=== PATIENT | female | born 1960 | race Caucasian/White ===

== ENCOUNTER → 2016-08-02 | Outpatient (CLI) | payer BC ==
[~2016-08-02] MED LIST: ASCA500 PO; ASPI81TA28 PO; CALCTAB5; CLX20 PO; FERR325T5 PO; FRS/40 PO; GLUCINJ SQ; LEVO125T7 PO; LEVO125T72 PO; LISI-729 PO; LPR25 PO; MISCCAP80 PO; MULT-506; POTA10CA28 PO; PRLSR20 PO; SIMV20TA2 PO; SPIR50TA2 PO; TIMO0.2527 OPB
[2016-08-02 12:13] LABS: ALT/SGPT 21 U/L (12-78); BLOOD UREA NITROGEN 32 mg/dl (7-18); BUN/CREATININE RATIO 26.3 (10-20); CALCIUM 9.1 mg/dl (8.5-10.1); CARBON DIOXIDE 25 mmol/L (21-32); CHLORIDE 102 mmol/L (98-107); CHOLESTEROL 136 mg/dl (0-200); GLUCOSE 157 mg/dl (70-99); POTASSIUM 4.6 mmol/L (3.5-5.1); SODIUM 136 mmol/L (136-145); TRIGLYCERIDES 76 mg/dl (0-150); VERY LOW DENSITY LIPOPROT CALC 15 mg/dl
[2016-08-02 12:24] LABS: ALKALINE PHOSPHATASE 87 U/L (45-117); AST/SGOT 12 U/L (15-37); CHOLESTEROL/HDL RATIO 2.1; HDL CHOLESTEROL 66 mg/dl; LDL CHOLESTEROL CALCULATED 55 mg/dl
[2016-08-02 12:39] LABS: RATIO 32.3 mcg/mg (0-30.0)
[2016-08-02 13:01] LABS: ESTIMATED AVERAGE GLUCOSE 240 mg/dl; HA1C FLAG Normal (Normal)
== END | disposition home or self-care (01) ==
LOC: C.LAB1850 09:40
PROVIDERS: ATTEND Nurse Practitioner Adult Health
DX: I10 Essential (primary) hypertension (principal); E03.9 Hypothyroidism, unspecified; E78.5 Hyperlipidemia, unspecified; E10.9 Type 1 diabetes mellitus without complications

== ENCOUNTER → 2016-10-18 | Outpatient (CLI) | payer BC ==
--- NOTE | 2016-10-18 09:48 | DIAGNOSTIC IMAGING REPORT ---
LEFT KNEE 4 OR MORE CLINICAL HISTORY: LEFT KNEE PAIN pain COMPARISON: None. DISCUSSION: Considerable degenerative narrowing medial joint compartment. Moderate degenerative change patellofemoral joint. Mild osteophytic reaction from the superior and inferior aspect of the patella. There is no evidence for soft tissue swelling. IMPRESSION: Significant degenerative change primarily of the medial and to a lesser extent patellofemoral joint compartments. Electronically signed by: Garrett Logan M.D. 10/18/2016 9:47 AM Dictated Date/Time: 10/18/2016 9:44 AM
== END | disposition home or self-care (01) ==
LOC: C.RDSM 13:55
PROVIDERS: ATTEND Family Medicine
DX: M25.562 Pain in left knee (principal); M17.12 Unilateral primary osteoarthritis, left knee

== ENCOUNTER 2017-05-02 23:11 | Emergency (ER) | payer OTHER, BC ==
[~2017-05-02] VITALS: Ht 165.1 cm; Wt 82.0 kg
[2017-05-02 23:16] VITALS: TEMP 36.9; Ht 165.1 cm; Wt 82.0 kg
--- NOTE | 2017-05-02 23:45 | EMERGENCY ROOM VISIT NOTE ---
History Report prepared by Lucy: Vincent Deleon Under the Supervision of: Dr. Lola Momin D.O. First contact with patient: 23:19 Chief Complaint: HYPOGLYCEMIA Stated Complaint: FELL-WC History of Present Illness The patient is a 56 year old female who presents to the Emergency Room with complaints of hypoglycemia that was recorded 1 hour ago. She has a past medical history of type 1 diabetes. 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 She was found on the floor by other staff members and does not remember what happened. She was found to be hypoglycemic with a blood sugar level of 48. She does not remember if she experienced a fall or not, but she is denying any pain or trauma at this time. After the incident, she ate some fudge and orange juice prior to arrival to the hospital. Earlier today at 1630, she did not take her blood sugar but gave herself insulin before eating dinner. She then had some hard candy as well. She notes that recently, she has been having episodes of hypoglycemia intermittently with her most recent one being yesterday. Her current blood sugar per nursing staff is 98. She denies any headache, neck pain, chest pain, shortness of breath, abdominal pain, fatigue or loss of her bowel or bladder. She states she used to have an insulin pump that was removed four years ago because of hyperglycemic episodes and the fear that it will happen again. Source of History: patient Onset: 1 hour ago Position: other (Hypoglycemia) Symptom Intensity: BSG 48 Quality: other (Hypoglycemia) Timing: other (Improving) Associated Symptoms: + LOC, No headache, No neck pain, No chest pain, No SOB , No abdominal pain, No urinary symptoms Note: She denies any abnormal symptoms at this time. Review of Systems See HPI for pertinent positives & negatives. A total of 10 systems reviewed and were otherwise negative. Past Medical & Surgical Medical Problems: (1) Acute renal failure (2) DKA, type 1 (3) DM (diabetes mellitus) type 1, uncontrolled, with ketoacidosis (4) Hyperkalemia (5) Hyperlipidemia (6) Hypertension (7) Hypothyroid (8) Vomiting Family History FHx: diabetes FHx: gallbladder disease FHx: heart disease FHx: lung disease Social History Smoking Status: Never Smoker Smokeless Tobacco Use: No Alcohol Use: none Drug Use: none Marital Status: in relationship Housing Status: lives with friends Occupation Status: employed Current/Historical Medications Scheduled Ascorbic Acid (Vitamin C *), 1,000 MG PO BID Aspirin (Aspirin Ec), 81 MG PO DAILY Calcium (Caltrate), 1 TAB DAILY Furosemide (Lasix), 40 MG PO DAILY Glucagon Hcl (Rdna) (Glucagen Hypokit), 1 INJ SQ UD Insulin Detemir (Levemir Flextouch), 1 DOSE SQ DIRECTED Insulin Human Lispro (Insulin Humalog Pump ), 1 EA N/A UD Levothyroxine (Levothroid), 0.125 MG PO 6XWK Levothyroxine Sodium (Synthroid), 250 MCG PO WK Metoprolol Tartrate (Lopressor), 12.5 MG PO BID Multivitamin (Multivitamin), 1 TAB DAILY Omeprazole (Prilosec), 20 MG PO DAILY Potassium Chloride (Micro-K Ext Rel), 10 MEQ PO DAILY Probiotic Product (Probiotic), 1 CAP PO DAILY Simvastatin (Zocor), 20 MG PO HS Spironolactone (Aldactone), 50 MG PO DAILY Scheduled PRN Lisinopril (Zestril), 5 MG PO DAILY PRN for m Allergies Coded Allergies: Cephalosporins (Verified Allergy, Mild, 05/03/17) Sulfa Drugs (Verified Allergy, Unknown, 05/03/17) Physical Exam Vital Signs Date Time Temp Pulse Resp B/P (MAP) Pulse Ox O2 Delivery O2 Flow Rate FiO2 05/03/17 00:38 61 18 128/57 99 05/02/17 23:16 36.9 69 20 151/64 100 Room Air Physical Exam HEENT: Head - normocephalic and atraumatic Pupils are equal, round, and reactive to light. Extraocular eye muscles are intact, and sclera are anicteric. Nose - moist nasal mucosa without discharge. Mouth - moist buccal mucosa. Oropharynx is nonerythematous and there is no tonsillar exudate or edema noted. Neck: Supple; no JVD, nuchal rigidity, cervical lymphadenopathy. Heart: Regular rate and rhythm. There is a normal S1 and S2 with no murmurs, clicks, or gallops appreciated. Lungs: Clear to auscultation bilaterally with no wheezes, rales, or rhonchi. Abdomen: Soft, completely nontender, nondistended, with good bowel sounds. There are no palpable pulsatile masses or hepatosplenomegaly. There is no guarding, rigidity, or rebound noted. Extremities: No evidence of cyanosis, clubbing, or edema. There are easily palpable peripheral pulses. Skin: Cold and slightly mottled on her abdomen. Medical Decision & Procedures Laboratory Results Test 05/03/17 00:19 Bedside Glucose 134 mg/dl (70-90) Laboratory results per my review. ED Course 2325: Past medical records reviewed. The patient was evaluated in room B12B. A complete history and physical exam was performed. A BSG was rechecked. 0014: I rechecked the patient at this time. She is feeling well. She gave a urine sample and noted that it was mildly red. However, she admits to eating beats recently which can make your urine red. A BSG was obtained. It's stable 0033: Upon reevaluation, the patient is resting. I discussed findings and results with her. She verbalized agreement of the treatment plan. She was discharged home. Medical Decision The patient is a 56 year old female who presents to the ED with hypoglycemia. Differential diagnosis includes poorly controlled diabetes, hypoglycemia, trauma , and hyperglycemia. Laboratory Results: Second BSG of 134, urine dip showed trace protein and trace nitrites. This is a 56-year-old type I diabetic who presents to the emergency department after an episode of unresponsiveness and hypoglycemia. The patient was at work when this occurred. She describes having another episode of hypoglycemia 2 days ago. The patient's blood sugar rebounded nicely and remained stable while here in the emergency department. I've encouraged the patient to watch her blood sugar closely over the next couple of days and take her sugar with each insulin administration and before she drives. Medication Reconcilliation Current Medication List: was personally reviewed by me Blood Pressure Screening Patient's blood pressure: Elevated blood pressure Blood pressure disposition: Elevated BP felt to be situational Impression Primary Impression: Diabetic hypoglycemia Scribe Attestation The scribe's documentation has been prepared under my direction and personally reviewed by me in its entirety. I confirm that the note above accurately reflects all work, treatment, procedures, and medical decision making performed by me. Departure Information Dispostion Home / Self-Care Referrals Faisal Bravo M.D. (PCP) Forms HOME CARE DOCUMENTATION FORM, IMPORTANT VISIT INFORMATION, WORK / SCHOOL INSTRUCTIONS Patient Instructions ED Diabetes Hypoglycemia Insulin React, My [facility] Additional Instructions rest Watch your blood sugar closely. Take your BSG before each insulin dose and before driving a car
[2017-05-03] MEDS ORDERED: LVMIPEN SQ (00:05)
[2017-05-03] MEDS ORDERED: INSPMPHMLG (00:06)
[2017-05-03 00:38] VITALS: BP 128/57; PULSE 61; O2SAT 99
== END 2017-05-03 00:39 | disposition home or self-care (01) ==
LOC: C.EDB 23:12
DX: E10.649 Type 1 diabetes mellitus with hypoglycemia without coma (principal); R55 Syncope and collapse; E78.5 Hyperlipidemia, unspecified; I10 Essential (primary) hypertension; E03.9 Hypothyroidism, unspecified; Z79.82 Long term (current) use of aspirin; Z79.899 Other long term (current) drug therapy; Z87.448 Personal history of other diseases of urinary system

== ENCOUNTER 2017-07-29 21:36 | Emergency (ER) | payer BC, OTHER ==
[~2017-07-29] VITALS: Ht 157.5 cm; Wt 81.3 kg
[~2017-07-29 21:36] MED LIST changes: -CLX20 PO; -FERR325T5 PO; +INSPMPHMLG; +LVMIPEN SQ; -TIMO0.2527 OPB
[2017-07-29 21:44] VITALS: Ht 157.5 cm; Wt 81.3 kg
[2017-07-29] MEDS ORDERED: BENZONATATE 100MG CAP PO ONE (22:00)
--- NOTE | 2017-07-29 22:31 | DIAGNOSTIC IMAGING REPORT ---
CHEST 2 VIEWS ROUTINE CLINICAL HISTORY: cough eval for pna COMPARISON STUDY: 04/09/2013 FINDINGS: Small parenchymal infiltrate medial aspect left lower lobe. Lungs otherwise appear clear. Diaphragms smooth. IMPRESSION: Small parenchymal infiltrate medial aspect left lower lobe. The above report was generated using voice recognition software. It may contain grammatical, syntax or spelling errors. Electronically signed by: Garrett Logan M.D. 07/29/2017 10:30 PM Dictated Date/Time: 07/29/2017 10:29 PM
[2017-07-29 22:42] LABS: INFLUENZA B ANTIGEN Neg for Influ B (NEG)
[2017-07-29] MEDS ORDERED: LEVO-366 PO (22:56)
[2017-07-29] MEDS ORDERED: ASCO100061 PO (22:58)
[2017-07-29] MEDS ORDERED: LEVOFLOXACIN 250 MG TAB PO ONE (23:00)
[2017-07-29] MEDS ORDERED: LEVO125T5 PO ×2 (23:02→23:06)
[2017-07-29 23:04] VITALS: BP 154/67; PULSE 71; TEMP 36.6; O2SAT 98
[2017-07-29] MEDS ORDERED: LEVO100T7 PO (23:04)
[2017-07-30] MEDS ORDERED: FLUC150T PO (00:30)
--- NOTE | 2017-07-30 00:55 | EMERGENCY ROOM VISIT NOTE ---
History Report prepared by Lucy: Yusuf Trinidad Under the Supervision of: Dr. Kumar Pritchett M.D. First contact with patient: 21:49 Chief Complaint: FLU LIKE SX Stated Complaint: COUGH,ACHING-FLU LIKE History of Present Illness The patient is a 57 year old female diabetic who presents to the Emergency Room with complaints of a persistent illness that started a few days ago. She states that she is congested, with a sore throat and a cough that is sometimes productive. The patient says that she has generalized achiness, and some of her teeth hurt in the back. She adds that she has some sinus pressure. The patient denies any fevers, shortness of breath, chest pain, or vomiting. 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 Source of History: patient Onset: A few days ago Position: other (global) Quality: other (illness) Timing: other (persistent) Associated Symptoms: + sorethroat, + cough, No fevers, No chest pain, No SOB , No vomiting Note: Associated symptoms: Achiness, teeth hurt in back, sinus pressure. Congestion. Review of Systems See HPI for pertinent positives & negatives. A total of 10 systems reviewed and were otherwise negative. Past Medical & Surgical Medical Problems: (1) Acute renal failure (2) DKA, type 1 (3) DM (diabetes mellitus) type 1, uncontrolled, with ketoacidosis (4) Hyperkalemia (5) Hyperlipidemia (6) Hypertension (7) Hypothyroid (8) Vomiting Family History FHx: diabetes FHx: gallbladder disease FHx: heart disease FHx: lung disease Social History Smoking Status: Never Smoker Alcohol Use: none Drug Use: none Marital Status: in relationship Housing Status: lives with friends Occupation Status: employed Current/Historical Medications Scheduled Ascorbic Acid (Ascorbic Acid), 1,000 MG PO BID Aspirin (Aspirin Ec), 81 MG PO DAILY Calcium (Caltrate), 600 MG DAILY Fluconazole (Diflucan), 150 MG PO DAILY Furosemide (Lasix), 40 MG PO DAILY Glucagon Hcl (Rdna) (Glucagen Hypokit), 1 INJ SQ UD Insulin Detemir (Levemir Flextouch), 1 DOSE SQ DIRECTED Insulin Human Lispro (Insulin Humalog Pump ), 1 EA N/A UD Levofloxacin (Levaquin), 500 MG PO DAILY Levothyroxine Sodium (Levothyroxine Sodium), 125 MCG PO 6XWK Levothyroxine Sodium (Levothyroxine Sodium), 250 MCG PO WK Metoprolol Tartrate (Lopressor), 12.5 MG PO BID Multivitamin (Multivitamin), 1 TAB DAILY Omeprazole (Prilosec), 20 MG PO DAILY Potassium Chloride (Micro-K Ext Rel), 10 MEQ PO DAILY Probiotic Product (Probiotic), 1 CAP PO DAILY Simvastatin (Zocor), 20 MG PO HS Spironolactone (Aldactone), 50 MG PO DAILY Scheduled PRN Lisinopril (Zestril), 5 MG PO DAILY PRN for Blood Pressure Allergies Coded Allergies: Cephalosporins (Verified Allergy, Mild, 05/03/17) Sulfa Drugs (Verified Allergy, Unknown, 05/03/17) Physical Exam Vital Signs Date Time Temp Pulse Resp B/P (MAP) Pulse Ox O2 Delivery O2 Flow Rate FiO2 07/29/17 23:04 36.6 71 18 154/67 98 07/29/17 21:44 36.6 69 18 155/74 97 Room Air Physical Exam Constitutional: Vital signs reviewed. Eyes: Pupils are equal round reactive to light. Conjunctiva are noninjected. ENT: Pharynx is clear without erythema or exudate. Mucous membranes are moist. Neck supple without meningeal signs. Respiratory: Clear to auscultation bilaterally. Breath sounds are equal bilaterally. Cardiovascular: Regular rate and rhythm. No rubs or gallops. GI: Soft, nondistended and nontender. Bowel sounds are present. Musculoskeletal: No peripheral edema. Integumentary: No cyanosis. Neurological: The patient is awake and alert. No focal deficits. Psychiatric: Normal affect. Medical Decision & Procedures ER Provider Diagnostic Interpretation: X-ray results as stated below per interpretation by me and the radiologist: CHEST 2 VIEWS ROUTINE CLINICAL HISTORY: cough eval for pna COMPARISON STUDY: 04/09/2013 FINDINGS: Small parenchymal infiltrate medial aspect left lower lobe. Lungs otherwise appear clear. Diaphragms smooth. IMPRESSION: Small parenchymal infiltrate medial aspect left lower lobe. The above report was generated using voice recognition software. It may contain grammatical, syntax or spelling errors. Electronically signed by: Garrett Logan M.D. 07/29/2017 10:30 PM Dictated Date/Time: 07/29/2017 10:29 PM Laboratory Results Test 07/29/17 21:58 Influenza Type A Antigen Neg for Influ A (NEG) Influenza Type B Antigen Neg for Influ B (NEG) Laboratory results as reviewed by me. Medications Administered Medications (Trade) Dose Ordered Sig/Abbi Route Start Time Stop Time Status Last Admin Dose Admin Benzonatate (Tessalon Perles Cap) 100 mg NOW ONCE PO 07/29/17 22:00 07/29/17 22:01 DC 07/29/17 22:00 100 MG Levofloxacin (Levaquin Tab) 500 mg NOW ONCE PO 07/29/17 23:00 07/29/17 23:01 DC 07/29/17 23:00 500 MG ED Course 2150: The patient was evaluated in room B6. A complete history and physical exam was performed. 0: Tessalon Perles Cap 100 mg PO. 9: Upon reevaluation, the patient appeared to be resting comfortably. I discussed tonight's findings with her. She verbalized agreement of the treatment plan. She was discharged home. 2300: Levaquin Tab 500 mg PO. Medical Decision This is a 57-year-old female who presents with flulike symptoms. Differential diagnosis includes bronchitis, pneumonia, sinusitis, influenza. I did perform a limited focused review of portions of the patient's old chart on the electronic medical record. The patient has had no recent pertinent visits to this hospital. I did evaluate the patient as noted above. I did order a flu test which was negative. I did treat her with Tessalon Perles for her cough. I did order and personally review the patient's chest x-ray as described above. She has a small left lower lobe infiltrate. I did discuss the test results with the patient. I did treat her with Levaquin 500 mg orally. She states that she would need medication for yeast infection after being placed on Levaquin. I did discharge her with a prescription for Diflucan and Levaquin for 6 more days. She was advised to follow-up with her doctor and discharged in good condition. Medication Reconcilliation Current Medication List: was personally reviewed by me Blood Pressure Screening Patient's blood pressure: Elevated blood pressure Impression Primary Impression: Left lower lobe pneumonia Scribe Attestation The scribe's documentation has been prepared under my direct and personally reviewed by me in its entirety. I confirm that the note above accurately reflects all work, treatment, procedures, and medical decision making performed by me. Departure Information Dispostion Home / Self-Care Prescriptions Fluconazole (DIFLUCAN) 150 Mg Tab 150 MG PO DAILY, #1 TAB Prov: Kumar Pritchett M.D. 07/30/17 Levofloxacin (Levaquin) 500 Mg Tab 500 MG PO DAILY for 6 Days, #6 TAB Prov: Kumar Pritchett M.D. 07/29/17 Referrals Faisal Bravo M.D. (PCP) Patient Instructions ED Pneumonia Adult, My [facility] Additional Instructions You have been examined and treated today on an emergency basis only. This is not a substitute for, or an effort to provide, complete comprehensive medical care. It is impossible to recognize and treat all injuries or illnesses in a single emergency department visit. It is therefore important that you follow up closely with your physician. Call as soon as possible for an appointment. Return for worsening symptoms or if you develop fever, vomiting, chest pain, shortness of breath or any other concerning symptoms. Problem Qualifiers Primary Impression: Left lower lobe pneumonia Pneumonia type: due to unspecified organism Qualified Codes: J18.1 - Lobar pneumonia, unspecified organism
== END 2017-07-29 23:06 | disposition home or self-care (01) ==
LOC: C.EDB 21:37
DX: J18.1 Lobar pneumonia, unspecified organism (principal); E10.10 Type 1 diabetes mellitus with ketoacidosis without coma; E87.5 Hyperkalemia; E78.5 Hyperlipidemia, unspecified; I10 Essential (primary) hypertension; E03.9 Hypothyroidism, unspecified; Z83.3 Family history of diabetes mellitus; Z82.49 Family history of ischemic heart disease and other diseases of the circulatory system; Z79.82 Long term (current) use of aspirin; Z79.4 Long term (current) use of insulin; Z88.2 Allergy status to sulfonamides; Z88.8 Allergy status to other drugs, medicaments and biological substances

== ENCOUNTER → 2017-08-22 | Outpatient (CLI) | payer BC ==
[~2017-08-22] MED LIST changes: -ASCA500 PO; +ASCO100061 PO; +LEVO125T5 PO; -LEVO125T7 PO; -LEVO125T72 PO
[2017-08-22 15:51] LABS: ALBUMIN 3.8 gm/dl (3.4-5.0); ALT/SGPT 21 U/L (12-78); AST/SGOT 11 U/L (15-37); BLOOD UREA NITROGEN 26 mg/dl (7-18); CALCIUM 9.2 mg/dl (8.5-10.1); CARBON DIOXIDE 27 mmol/L (21-32); CHOLESTEROL 134 mg/dl (0-200); CREATININE 1.13 mg/dl (0.60-1.20); GLUCOSE 174 mg/dl (70-99); SODIUM 133 mmol/L (136-145)
[2017-08-22 15:57] LABS: CREATININE RANDOM URINE 19.9 mg/dl
[2017-08-22 16:01] LABS: ALKALINE PHOSPHATASE 91 U/L (45-117); LDL CHOLESTEROL CALCULATED 55 mg/dl; TOTAL PROTEIN 7.7 gm/dl (6.4-8.2)
[2017-08-23 06:43] LABS: HEMOGLOBIN A1C 9.8 % (4.5-5.6)
== END | disposition home or self-care (01) ==
LOC: C.LAB1850 14:14
PROVIDERS: ATTEND Nurse Practitioner Adult Health
DX: I10 Essential (primary) hypertension (principal); E03.9 Hypothyroidism, unspecified; E10.43 Type 1 diabetes mellitus with diabetic autonomic (poly)neuropathy; E78.5 Hyperlipidemia, unspecified

== ENCOUNTER 2020-09-15 10:47 | Observation (INO) ==
--- NOTE | 2020-07-23 14:29 | PAT Medication Instructions ---
Medication Instructions Date of Service July 23, 2020 Home Medications Medication Instructions Recorded pen needle, diabetic 32 gauge x #200 ea 02/27/19" hydroxyzine pamoate 25 mg capsule 25 mg PO TID PRN #30 cap 11/22/19 furosemide 40 mg tablet 40 mg PO QAM #14 tab 01/17/20 simvastatin 20 mg tablet 20 mg PO HS #90 tab 01/17/20 spironolactone 50 mg tablet 25 mg PO BID #90 tab 02/06/20 Levemir FlexTouch U-100 Insuln 100 9 unit SQ BID #30 ml NS 03/24/20 unit/mL (3 mL) subcutaneous pen metoprolol tartrate 25 mg tablet 12.5 mg PO BID #7 tab NS 05/11/20 Wheeled Walker #1 ea 07/06/20 flash glucose scanning reader #1 ea 07/14/20 flash glucose sensor #2 ea 07/14/20 triamcinolone acetonide 0.1 % 1 applic TOP UD PRN #80 g 07/14/20 topical ointment ascorbic acid (vitamin C) 1,000 mg tablet 1 gm PO BID aspirin 81 mg tablet,delayed release 81 mg PO QAM cholecalciferol (vitamin D3) 25 mcg (1,000 unit) capsule 1,000 units PO QAM cyanocobalamin (vitamin B-12) 1,000 mcg tablet 1,000 mcg PO QAM multivitamin 1 tab PO QAM omeprazole 20 mg capsule,delayed release 20 mg PO QAM glucagon (human recombinant) 1 mg solution for injection 1 mg IM .COMPLEX PRN timolol 1 drp OPHTHALMIC (EYE) HS hydroxyzine pamoate 25 mg capsule 25 mg PO TID PRN furosemide 40 mg tablet 40 mg PO QAM simvastatin 20 mg tablet 20 mg PO HS spironolactone 50 mg tablet 25 mg PO BID Levemir FlexTouch U-100 Insuln 100 unit/mL (3 mL) subcutaneous pen 9 unit SQ BID metoprolol tartrate 25 mg tablet 12.5 mg PO BID insulin aspart U-100 [Novolog Flexpen U-100 Insulin] 0 unit SQ UD levothyroxine 137 mcg PO QAM lisinopril 40 mg PO QAM triamcinolone acetonide 0.1 % topical ointment 1 applic TOP UD PRN Continue as directed triamcinolone acetonide 0.1 % topical ointment 1 applic TOP UD PRN -- do not use near surgical site within 24 hours of surgery. glucagon (human recombinant) 1 mg solution for injection 1 mg IM .COMPLEX PRN DO NOT take the morning of surgery ascorbic acid (vitamin C) 1,000 mg tablet 1 gm PO BID cholecalciferol (vitamin D3) 25 mcg (1,000 unit) capsule 1,000 units PO QAM cyanocobalamin (vitamin B-12) 1,000 mcg tablet 1,000 mcg PO QAM multivitamin 1 tab PO QAM hydroxyzine pamoate 25 mg capsule 25 mg PO TID PRN furosemide 40 mg tablet 40 mg PO QAM spironolactone 50 mg tablet 25 mg PO BID insulin aspart U-100 [Novolog Flexpen U-100 Insulin] 0 unit SQ UD lisinopril 40 mg PO QAM Take morning of surgery With a small sip of water, OTHERWISE NOTHING TO EAT OR DRINK AFTER MIDNIGHT: aspirin 81 mg tablet,delayed release 81 mg PO QAM omeprazole 20 mg capsule,delayed release 20 mg PO QAM metoprolol tartrate 25 mg tablet 12.5 mg PO BID levothyroxine 137 mcg PO QAM Take evening before surgery ascorbic acid (vitamin C) 1,000 mg tablet 1 gm PO BID timolol 1 drp OPHTHALMIC (EYE) HS hydroxyzine pamoate 25 mg capsule 25 mg PO TID PRN (if needed) simvastatin 20 mg tablet 20 mg PO HS spironolactone 50 mg tablet 25 mg PO BID Levemir FlexTouch U-100 Insuln 100 unit/mL (3 mL) subcutaneous pen 9 unit SQ BID metoprolol tartrate 25 mg tablet 12.5 mg PO BID insulin aspart U-100 [Novolog Flexpen U-100 Insulin] 0 unit SQ UD Insulin Dependent Diabetic Patients * .Test your blood sugar the morning of surgery * If Blood Sugar is GREATER THAN 150, take HALF of your regular dose of: Levemir FlexTouch U-100 Insuln 100 unit/mL (3 mL) -- take 4 units. * If Blood Sugar is LESS THAN 150, DO NOT TAKE ANY: Levemir FlexTouch U-100 Insuln 100 unit/mL (3 mL) subcutaneous pen Other Notes If you have any questions please call us at [phone] or [phone] or [phone] or [phone]
--- NOTE | 2020-07-27 09:44 | Anesthesiology Consultation ---
Date of Service July 27, 2020 Assessment & Plan (1) Encounter for pre-operative examination: COVID Status: As of 07/27/20 assessment, patient denies travel to endemic area, known exposure/sick contacts, or symptoms of COVID19. Patient instructed that they and their household members must follow strict social distancing guidelines, wear a mask in public and avoid travel/events/gatherings for 14 days prior to surgery. Preoperative COVID19 testing to be completed prior to surgery per surgeon's arrangements. Patient made aware to self-isolate as much as possible between COVID testing and surgery. 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 No COVID patients on her unit, but she will be working after COVID test. BSG AM DOS. Chart Review Chart Review: Acceptable Risk for Surgery (pending diabetes visit 08/10) and Patient seen in Pre Admission Testing Teaching & Discussion Instructed NPO after midnight before surgery, except medications with 15 cc of water. Medication instructions provided according to the PAT guidelines. History Surgery Operation Date: 08/21/20 12:45 Proposed Procedures p Left Total Knee Arthroplasty - Philipp Tafoya MD Height/Weight Height: 5 ft 6 in Weight: 81.6 kg Allergies Allergy/AdvReac Type Severity Reaction Status Date / Time ceftriaxone [From Rocephin] Allergy Unknown Rash Verified 07/14/20 11:18 Sulfa (Sulfonamide Allergy Unknown Rash Verified 07/14/20 11:18 Antibiotics) Medications Home Medications Medication Instructions Recorded Confirmed Last Taken ascorbic acid (vitamin C) 1,000 mg 1 gm PO BID tab 12/12/18 07/14/20 03/24/19 tablet aspirin 81 mg tablet,delayed 81 mg PO QAM tab 12/12/18 07/14/20 03/24/19 release cholecalciferol (vitamin D3) 25 1,000 units PO QAM cap 12/12/18 07/14/20 03/24/19 mcg (1,000 unit) capsule cyanocobalamin (vitamin B-12) 1,000 mcg PO QAM tab 12/12/18 07/14/20 03/24/19 1,000 mcg tablet multivitamin 1 tab PO QAM 12/12/18 07/14/20 03/24/19 omeprazole 20 mg capsule,delayed 20 mg PO QAM #30 cap 12/12/18 07/14/20 03/25/19 release blood sugar diagnostic #10 ea 01/16/19 07/09/20 Unknown glucagon (human recombinant) 1 mg 1 mg IM .COMPLEX PRN 01/16/19 07/14/20 Unknown solution for injection lancets 33 gauge #100 ea 01/16/19 07/09/20 Unknown pen needle, diabetic 32 gauge x #200 ea 02/27/19 07/09/20 Unknown 5/32" timolol 1 drp OPHTHALMIC (EYE) HS 03/18/19 07/14/20 03/24/19 hydroxyzine pamoate 25 mg capsule 25 mg PO TID PRN #30 cap 11/22/19 07/14/20 Unknown furosemide 40 mg tablet 40 mg PO QAM #14 tab 01/17/20 07/14/20 Unknown simvastatin 20 mg tablet 20 mg PO HS #90 tab 01/17/20 07/14/20 Unknown spironolactone 50 mg tablet 25 mg PO BID #90 tab 02/06/20 07/14/20 Unknown Levemir FlexTouch U-100 Insuln 100 9 unit SQ BID #30 ml NS 03/24/20 07/14/20 Unknown unit/mL (3 mL) subcutaneous pen metoprolol tartrate 25 mg tablet 12.5 mg PO BID #7 tab NS 05/11/20 07/14/20 Unknown Wheeled Walker #1 ea 07/06/20 07/09/20 Unknown flash glucose scanning reader #1 ea 07/14/20 Unknown flash glucose sensor #2 ea 07/14/20 Unknown insulin aspart U-100 [Novolog 0 unit SQ UD 07/14/20 07/14/20 Unknown Flexpen U-100 Insulin] levothyroxine 137 mcg PO QAM 07/14/20 07/14/20 Unknown lisinopril 40 mg PO QAM 07/14/20 07/14/20 Unknown triamcinolone acetonide 0.1 % 1 applic TOP UD PRN #80 g 07/14/20 Unknown topical ointment Past Medical History Medical History Degenerative arthritis of knee, bilateral Glaucoma bilt History of COVID-19 Anosmia for about 2 months, has resolved. + RESULT MAR 27 2020 Hyperlipidemia Hypertension Hypothyroidism Osteoarthritis Type I diabetes mellitus Dx age 11, follows with [facility] endocrine, Bianca Marvin. Exercise / Class Metabolic Activity II 4-5 Yardwork/Stairs/Walk up hill (Denies CP or SOB with 1 FOS, moving slowly/limited activity 2/2 knee pain) Past Family History Family History Other Family history of diabetes mellitus No family history of adverse response to anesthesia Past Surgical History Surgical History History of arthroscopy of left shoulder History of arthroscopy of right knee meniscus repair History of arthroscopy of right shoulder History of bilateral tubal ligation History of colonoscopy with polypectomy History of dilatation and curettage History of tooth extraction Past Anesthesia History No Hx of Anesthesia Complications and No Family Hx of Anesthesia Complications History of PONV No Hx of PONV and No Hx of Motion Sickness Social History Smoking Status: Never smoker Do You Dip or Chew Tobacco: No Hx Alcohol Use: Yes Alcohol type: wine alcohol intake frequency: holidays/special occasions only Hx Substance Use: No substance use type: does not use Review of Systems Pt denies any recent chest pain, shortness of breath, palpitations, cough, fever , URI, or uncontrolled acid reflux (controlled with PPI use). +joint pain Physical Exam Vital Signs BP: 145/68 P: 63bpm SPO2: 99% RA T: 97.8 F R: 12 ENMT Mouth: + dental restorations (at least one crown); no chipped teeth and no loose teeth Thyromental Distance: > or= 3.5 Finger Breadths Mallampati Class: III Neck + short neck; neck extension not limited Respiratory normal respiratory effort, lungs clear to auscultation Cardiovascular RRR, no murmur, no edema Testing Laboratory Results 07/27/20 10:26 PT 9.8 Seconds (9.0-12.0) 07/27/20 10:26 INR 1.0 (0.9-1.1) 07/27/20 10:26 APTT 23.6 Seconds (21.0-31.0) 07/27/20 10:26 Hemoglobin A1c 8.6 % (4.5-5.6) H 07/27/20 10:26 Blood Type A Positive 07/27/20 10:26 Antibody Screen NEGATIVE 07/27/20 10:26 07/09/20 SODIUM: 138 POTASSIUM: 4.6 CHLORIDE: 106 CO2: 25 BUN: 31 CREATININE: 1.08 GLUCOSE: 67 TSH: 0.042 (endocrine reviewed and changed levothyroxine dose) A1C: 8.6% -- surgeon's office made aware. Electrocardiogram Date: 07/27/20 Findings: + SB @ (58bpm) Otherwise normal EKG. Compared to EKG from 2012, [place] interval has decreased, QT has shortened. Chest X-Ray Date: 07/27/20 Findings: + NAD
--- NOTE | 2020-07-27 10:45 | XRay Report ---
XR chest Pre-admission PA/Lat HISTORY: Preop. COMPARISON: Chest 04/09/2013. FINDINGS: The lungs are clear. Cardiac silhouette is normal in size. No pleural effusions. No pneumot horax. IMPRESSION: No acute process. ACT 112: Negative or not required by law. Electronically signed by: Orion Vick M.D. 07/27/2020 10:44 AM
[2020-07-27 11:24] LABS: Basophils # (auto) 0.02 K/uL (0-0.2); Basophils % (auto) 0.4 %; Eosinophils # (auto) 0.51 K/uL (0-0.5); Eosinophils % (auto) 9.8 %; Hematocrit (blood only) 33.9 % (37-47); Hemoglobin 11.1 g/dL (12.0-16.0); Lymphocytes # (auto) 1.58 K/uL (1.2-3.4); Lymphocytes % (auto) 30.2 %; Mean Corpuscular Hgb Conc 32.7 g/dL (32-36); Mean Corpuscular Volume 88.5 fL (80-100); Mean Platelet Volume 11.3 fL (7.4-10.4); Monocytes # (auto) 0.31 K/uL (0.11-0.59); Monocytes % (auto) 5.9 %; Neutrophils # (auto) 2.81 K/uL (1.4-6.5); Neutrophils % (auto) 53.7 %; Platelet Count 255 K/uL (130-400); RDW Coefficient of Variation 13.1 % (11.5-14.5); RDW Standard Deviation 42.4 fL (36.4-46.3); Red Blood Count 3.83 M/uL (4.2-5.4); White Blood Count 5.23 K/uL (4.8-10.8)
[2020-07-27 11:43] LABS: Partial Thromboplastin Ratio 0.9; Partial Thromboplastin Time 23.6 Seconds (21.0-31.0); Prothrombin Time 9.8 Seconds (9.0-12.0)
[2020-07-27 12:27] LABS: Estimated Average Glucose 200 mg/dl; Hemoglobin A1C 8.6 % (4.5-5.6)
--- NOTE | 2020-07-27 16:15 | Electrocardiogram Report ---
Test Reason : Blood Pressure : / mmHG Vent. Rate : 058 BPM Atrial Rate : 058 BPM P-R Int : 184 ms QRS Dur : 076 ms QT Int : 410 ms P-R-T Axes : 036 048 045 degrees QTc Int : 402 ms Sinus bradycardia Otherwise normal ECG When compared with ECG of 09-APR-2013 12:05, MS interval has decreased QT has shortened Confirmed by Faisal Villalba ([id number]) on 07/27/2020 4:15:42 PM Referred By: Philipp Tafoya Confirmed By:Octavio Villalba
--- NOTE | 2020-08-13 22:25 | History and Physical Report ---
DATE OF ADMISSION: 08/21/2020 CHIEF COMPLAINT: Bilateral knee pain and discomfort, left side greater than the right. HISTORY OF PRESENT ILLNESS: The patient is a 60-year-old female who presents for treatment of her knees. She has got a long history of bilateral knee pain and discomfort, describes it has gotten worse over time. She has been through extensive conservative treatment provided by Dr. Sullivan at [facility] and his physician licensed physical therapy assistant. She has had steroid shots and viscosupplementation, which have become less successful over time. She takes medicines with minimal relief. 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 Pain is increased with prolonged standing. They swell more as the day goes on. She limps more as the day goes on. She would like to have her knee fixed. PAST MEDICAL HISTORY: Significant for, 1. Poorly controlled diabetes. 2. Hypertension. 3. Elevated cholesterol. 4. Anxiety/depression. 5. Gastroesophageal reflux disease. PAST SURGICAL HISTORY: Includes, 1. Tubal ligation. 2. Bilateral shoulder manipulations. 3. Right knee septic prepatellar bursa by Dr. Verdugo 15 years ago. ALLERGIES: SULFA AND ROCEPHIN. CURRENT MEDICINES: Include, 1. Lisinopril 40 mg a day. 2. Furosemide 40 mg. 3. Simvastatin 20 mg a day. 4. Levothyroxine 150 mcg a day. 5. Metoprolol 25 mg. 6. Spironolactone 50 mg a day. 7. Omeprazole 20 mg. 8. Alex Aspirin. 9. NovoLog insulin. 10. Levemir insulin. SOCIAL HISTORY: A 60-year-old female. 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 She is . Rare alcohol intake. One child. FAMILY HISTORY: Significant for heart disease, diabetes and blood clots. REVIEW OF SYSTEMS: Significant for poorly controlled diabetes. She has been working hard with her family doctor to try and get this better controlled. No history of DVT or PE. No chest pain. No shortness of breath. No bleeding problems. PHYSICAL EXAMINATION: GENERAL: Shows a pleasant, middle-aged female. Looks to be in reasonably good health. HEENT: Benign. NECK: Supple, no lymphadenopathy. LUNGS: Clear to auscultation. HEART: Has a regular rate and rhythm. ABDOMEN: Soft, nontender, nondistended. EXTREMITIES: Grossly neurovascularly intact except as follows: Examination of both knees reveals the patient walks with a waddling gait. Examination of the left knee reveals varus alignment. She has got a pretty stiff knee with about 10-degree flexion contracture and can only bend to 90 degrees. No pain with hip motion. Examination of the right knee reveals varus alignment. Range of motion 5-120. Less stiff than her other knee. Small knee effusion. No pain with hip motion. X-RAYS: X-rays of both knees were reviewed. It shows advanced bilateral knee DJD. Left side is a bit worse than the right. She has complete loss of the medial joint space. ASSESSMENT: A 60-year-old female with fairly poorly controlled diabetes along with some hypertension, elevated cholesterol, anxiety/depression, gastroesophageal reflux disease with advanced bilateral knee degenerative joint disease. The left side is more symptomatic than the right and the left knee is pretty stiff. She would like to have her knee fixed. We did schedule previously, but we had to cancel it to try and get her blood glucose under better control. PLAN: We are going to take her to the operating room and do a left total knee replacement. The risks and benefits of this procedure were explained to the patient including but not limited to DVT, PE, , infection, neurological injury, vascular injury, bleeding problem, pain, limited range of motion, stiffness, failure to relieve her symptoms, need for further surgery in the future, fracture and incomplete relief of symptoms. The patient understands and desires to proceed. Informed consent was obtained. I did tell her with her poorly controlled diabetes, she is at increased risk of infection and she is aware of that. She has done the best she feels like she can to try and get this under control. As far as discharge plans, she is planning to be discharged to home using [facility] home health program. We will use insulin sliding scale coverage in the hospital.
--- NOTE | 2020-09-10 18:01 | History and Physical Report ---
DATE OF ADMISSION: 09/15/2020 CHIEF COMPLAINT: Bilateral knee pain and discomfort, left side greater than the right. HISTORY OF PRESENT ILLNESS: The patient is a 60-year-old female who presents for treatment of her knees. She has got a long history of bilateral knee pain and discomfort that has gradually gotten worse over time. She has been through extensive conservative treatment, treated by Dr. Sullivan at [facility] and his physician medicine assistant. She has had steroid shots and viscosupplementation, which have become less successful over time. She takes oral medicines with minimal relief. 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 Pain is increased with weightbearing as well as prolonged standing. She has pain going up and down stairs. She limps more as the day goes on. She would like to have her knee fixed. The left knee is bothered more than the right. Of note, we had scheduled for knee replacement surgery in the past but canceled due to COVID issues, now would like to proceed. PAST MEDICAL HISTORY: Significant for: 1. Diabetes, fairly poorly controlled, but recently improved with a lot of work. 2. Hypertension. 3. Elevated cholesterol. 4. Anxiety/depression. 5. Gastroesophageal reflux disease. PAST SURGICAL HISTORY: Include: 1. Tubal ligation. 2. Bilateral shoulder manipulation. 3. Right knee septic prepatellar bursa treated by Dr. Verdugo 15 years ago. ALLERGIES: SULFA AND ROCEPHIN. CURRENT MEDICINES: 1. Lisinopril 40 mg. 2. Furosemide 40 mg a day. 3. Simvastatin 20 mg. 4. Levothyroxine 150 mcg a day. 5. Metoprolol 25 mg. 6. Spironolactone 50 mg a day. 7. Omeprazole 20 mg. 8. Alex aspirin. 9. NovoLog insulin. 10. Levemir insulin. SOCIAL HISTORY: A 60-year-old female. 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 Rare alcohol intake. FAMILY HISTORY: Significant for heart disease, diabetes and blood clots. REVIEW OF SYSTEMS: Significant for poorly controlled diabetes. She has been working hard to get her A1c down to 8.6. It was above 10. Denies any history of DVT or PE. No known bleeding problems. PHYSICAL EXAMINATION GENERAL: Shows a pleasant, middle-aged female, looks to be in pretty good health. HEENT: Benign. NECK: Supple, no lymphadenopathy. LUNGS: Clear to auscultation. HEART: Has a regular rate and rhythm. ABDOMEN: Soft, nontender, nondistended. EXTREMITIES: Grossly neurovascularly intact except as follows. Examination of both knees reveals the patient walks with a little bit of a waddling gait. Examination of the left knee reveals varus alignment which is increased with weightbearing. Knee is pretty stiff with about 10-degree flexion contracture and can flex to 90 degrees. No pain with hip motion. Examination of the right knee reveals varus alignment. Range of motion is 5 to about 120 degrees. A small knee effusion. No pain with hip motion. X-RAYS: X-rays of both knees reveal advanced bilateral knee DJD. She has complete loss of medial joint space. She has subchondral sclerosis. The left knee is a bit worse than the right. ASSESSMENT: A 60-year-old white female with fairly poorly controlled diabetes with multiple other comorbidities including hypertension, elevated cholesterol, gastroesophageal reflux disease with advanced bilateral knee degenerative joint disease. She has failed conservative treatment. The left knee is bothering more than the right and she would like to have it fixed. We had scheduled previously but canceled due to COVID issues and she would like to proceed with left knee replacement. PLAN: We will take her to the operating room and do a left total knee replacement. The risks and benefits of this procedure were explained to the patient including but not limited to DVT, PE, , infection, neurological injury, vascular injury, bleeding problem, pain, limited range of motion, stiffness, failure to relieve symptoms, incomplete relief of symptoms, need for further surgery in the future, fracture, leg length inequality, nerve palsy, etc. The patient understands and desires to proceed. Informed consent was obtained. As far as discharge plan, she is planning to be discharged home using [facility] home health program.
[~2020-09-15 10:47] MED LIST changes: +ACETAMINOPHEN 500 MG TAB PO SCH; -ASCO100061 PO; -ASPI81TA28 PO; +BUPIVACAINE LIPOSOME/PF 266 MG, BUPIVACAINE/EPINEPHRINE 50 ML, SODIUM CHLORIDE 0.9% 30 ... INFIL SCH; -CALCTAB5; +FAMOTIDINE 20 MG TAB PO SCH; -FRS/40 PO; +GABAPENTIN 600 MG DOSE PO SCH; -GLUCINJ SQ; -INSPMPHMLG; -LEVO125T5 PO; -LISI-729 PO; -LPR25 PO; +LR 15ML/HR IV SCH; +LR 500ML BOLUS, THEN 15ML/HR IV SCH; +LR 60ML/HR IV SCH; -LVMIPEN SQ; -MISCCAP80 PO; -MULT-506; -POTA10CA28 PO; -PRLSR20 PO; -SIMV20TA2 PO; -SPIR50TA2 PO; +Scopolamine 1 MG TDSY TD SCH; +Scopolamine CHECK PATCH PLACEMENT SCH; +TRANEXAMIC ACID 1,000 MG **IV Intra-op IV SCH; +ceFAZolin 2000MG 2,000 MG/15 ML SYR IV SCH
[2020-09-15] MEDS ORDERED: NovoLIN-R INSULIN PER UNIT CHARGE ONE (11:46)
[2020-09-15] MEDS ORDERED: INSULIN HUMAN REGULAR PER UNIT 5 UNITS in SYRINGE 0 ML IV STA (12:39)
--- NOTE | 2020-09-15 12:43 | History & Physical Bridge Note ---
Date of Service September 15, 2020 History & Physical Bridge Note I have examined the patient, reviewed the History & Physical and in the interval since the performance of the History & Physical I have noted the following changes of clinical significance: no changes noted
[2020-09-15] MEDS ORDERED: ceFAZolin 2,000 MG/15 ML IV PUSH IV ONE (12:47)
[2020-09-15] MEDS ORDERED: BUPIVACAINE 0.5 % 5 MG/1 ML PF 10ML VIAL ONE (13:13)
[2020-09-15] MEDS ORDERED: ONDANSETRON INJ 2 MG/ML 2 ML VIAL IV PRN ×2 (13:27→17:33)
[2020-09-15] MEDS ORDERED: fentaNYL citrate 100 MCG/2 ML VIAL IV PRN (13:27)
[2020-09-15] MEDS ORDERED: ATROPINE SULFATE 0.1 MG/ML 10ML SYR IV PRN (13:27)
[2020-09-15] MEDS ORDERED: ePHEDrine sulfate 50 MG/ML AMP IV PRN (13:27)
[2020-09-15] MEDS ORDERED: HYDROmorphone INJ 2 MG/ML SYR/VIAL IV PRN (13:27)
[2020-09-15] MEDS ORDERED: MIDAZOLAM HCL 1 MG/ML 2ML VIAL ONE (13:29)
[2020-09-15] MEDS ORDERED: SODIUM CHLORIDE 0.9% PF 50 ML VIAL ONE (14:21)
[2020-09-15] MEDS ORDERED: BUPIVACAINE LIPOSOME 1.3% 266 MG/20 ML VIAL ONE (14:22)
[2020-09-15] MEDS ORDERED: EPINEPHrine INJ 1 MG/ML AMP ONE (14:22)
[2020-09-15] MEDS ORDERED: BUPIVACAINE 0.25% 30 ML VIAL ONE (14:22)
[2020-09-15] MEDS ORDERED: PROPOFOL IV EMULSION 10 MG/ML 20 ML VIAL IV ONE (14:25)
[2020-09-15] MEDS ORDERED: LIDOCAINE HCL 2% 2 ML VIAL/AMP(20MG/ML) INFIL ONE (14:33)
[2020-09-15] MEDS ORDERED: ONDANSETRON INJ 2 MG/ML 2 ML VIAL ONE (14:33)
[2020-09-15] MEDS ORDERED: ePHEDrine sulfate 50 MG/ML SYR ONE (15:07)
[2020-09-15] MEDS ORDERED: VANCOMYCIN HCL 1000MG/20ML VIAL ONE (15:11)
--- NOTE | 2020-09-15 16:37 | Post Operative Brief Note ---
PG Immediate Post Op with CF Date of Surgery September 15, 2020 Pre & Post Diagnosis Operation Date: 09/15/20 13:50 Pre-Op Diagnosis: Left Total Knee Osteoarthritis Post-Op Diagnosis: Left Total Knee Osteoarthritis I identified the patient and participated in the time-out.: Yes Procedure Operation Date: 09/15/20 13:50 Actual Procedures p Left Total Knee Replacement(Left) - Philipp Tfaoya MD Surgeon Philipp Tafoya MD Sole Tacker NORBERT Patterson Estimated Blood Loss 50 Findings Consistent with Post-Op Diagnosis Fluids 1000 cc Specimens Specimen Description: Permanent Specimen A. Left Knee Bone and Tissue Drains Lugo Catheter Anesthesia Type Spinal MAC Complications none Disposition Accompanied Patient To Recovery: No Disposition: Recovery Room
--- NOTE | 2020-09-15 16:53 | Anesthesiology Progress Note ---
Date of Service September 15, 2020 Anesthesia Post Procedure Vital Signs Vital Signs: Temp Pulse Pulse Resp BP BP Pulse Ox 09/15/20 16:50 69 16 110/54 L 95 09/15/20 16:40 74 16 100/51 L 96 09/15/20 16:34 36.6 C 78 16 115/47 L 97 09/15/20 11:27 36.5 C 67 18 162/66 H 98 Transfer of Care Handoff Completed per policy Notes Mental Status: alert / awake / arousable and participated in evaluation Nausea / Vomiting: adequately controlled Pain: adequately controlled Airway Patency, RR, SpO2: stable & adequate BP & HR: stable & adequate Hydration State: stable & adequate Neuraxial Anesthesia: was administered and sensory block is resolving Anesthetic Complications: no major complications apparent and Pt Satisfied with anesthetic care
--- NOTE | 2020-09-15 16:54 | XRay Report ---
XR knee LT 1 or 2V routine HISTORY: 60 years-old Female Surgical Post Op [total joint arthroplasty COMPARISON: Left knee radiographs 10/30/2019 TECHNIQUE: 2 views of the left knee FINDINGS: Left knee total joint arthroplasty and patella resurfacing. Anterior midline skin carmen are noted a long with expected postsurgical soft tissue swelling with deep tissue air. No acute fracture, alignme nt or unexpected opaque foreign body. IMPRESSION: Left knee total joint arthroplasty with expected postoperative changes. ACT 112: Negative or not required by law. The above report was generated using voice recognition software. It may contain grammatical, syntax o r spelling errors. Electronically signed by: Jose Lira M.D. 09/15/2020 4:52 PM
[2020-09-15] MEDS ORDERED: GLUCOSE 10 TABS/TUBE PO PRN (17:33)
[2020-09-15] MEDS ORDERED: CARBOHYDRATES FOR HYPOGLYCEMIA PO PRN (17:33)
[2020-09-15] MEDS ORDERED: oxyCODONE HCL IR 5 MG TAB (IMMEDIATE RELEASE) PO PRN (17:33)
[2020-09-15] MEDS ORDERED: NALOXONE HCL 0.4 MG/1 ML VIAL/CARP IV PRN (17:33)
[2020-09-15] MEDS ORDERED: METOCLOPRAMIDE HCL INJ 5 MG/ML 2 ML VIAL IV PRN (17:33)
[2020-09-15] MEDS ORDERED: MAGNESIUM HYDROXIDE SUSP 30 ML UDC PO PRN (17:33)
[2020-09-15] MEDS ORDERED: diphenhydrAMINE Capsule 25 MG CAP PO PRN (17:33)
[2020-09-15] MEDS ORDERED: bisacodyL 10 MG SUPP PR PRN (17:33)
[2020-09-15] MEDS ORDERED: ALUMINUM/MAGNESIUM SUSP 30 ML UDC PO PRN (17:33)
[2020-09-15] MEDS ORDERED: DEXTROSE 50% 50 ML SYRINGE IV PRN (17:33)
[2020-09-15] MEDS ORDERED: hydrOXYzine HCl 25 MG TAB PO PRN (17:33)
[2020-09-15] MEDS ORDERED: TRIAMCINOLONE ACET 0.1% OINT 15 GM TUBE TOP PRN (17:33)
[2020-09-15] MEDS ORDERED: GLUCAGON FOR INJ 1 MG VIAL SQ PRN (17:33)
[2020-09-15] MEDS ORDERED: ASCORBIC ACID 500 MG TAB PO SCH (17:33)
[2020-09-15] MEDS ORDERED: HYDROmorphone INJ 0.5 MG/0.5 ML SYR IV PRN (17:33)
[2020-09-15] MEDS ORDERED: GLUCOSE 40% GEL 15 GM TUBE PO PRN (17:33)
[2020-09-15] MEDS ORDERED: PHARMACY GLYCEMIC MGMT CONSULT PRN (17:43)
[2020-09-15] MEDS: [UNRECOGNIZED DRUG - REMARK] SCH ×3 (18:09→18:11)
[2020-09-15] MEDS: Scopolamine CHECK PATCH PLACEMENT SCH (18:20)
--- NOTE | 2020-09-15 18:30 | Operative Report ---
Post Operative Report Pre & Post Diagnosis Operation Date: 09/15/20 13:50 Pre-Op Diagnosis: Left Total Knee Osteoarthritis Post-Op Diagnosis: Left Total Knee Osteoarthritis I identified the patient and participated in the time-out.: Yes Procedure Operation Date: 09/15/20 13:50 Actual Procedures p Left Total Knee Replacement(Left) - Philipp Tafoya MD Surgeon Philipp Tafoya MD Client Service Representative NORBERT Patterson Estimated Blood Loss 50 Findings Consistent with Post-Op Diagnosis Operative findings revealed advanced left knee DJD. She had extensive grade 4 [id number] disease and eburnation of the entire medial compartment. The lateral and patellofemoral compartments were pretty well-preserved. She had a very stiff knee with about a 10 degree flexion contracture and only a 90 degrees of flexion. Fluids 1000 cc Specimens Left knee sent for pathology. Anesthesia Type Spinal MAC Complications none Disposition Accompanied Patient To Recovery: No Disposition: Recovery Room Indications Patient is a 60-year-old female has had a long history of left knee pain discomfort is gradually progressed over time patient been through extensive conservative treatment which was became less successful over time. She was markedly debilitated by her disease. She elected proceed with surgical treatment. She had a very stiff knee. Description of Procedure The patient was taken to the operating room, identified, placed on the operating table supine position but all contact areas were properly padded. IV antibiotics were 5 by anesthesia team.Spinal anesthetic and abductor canal block had provided holding area. Lugo catheter was placed in sterile fashion. A left thigh turn was then placed in the left lower extremities and prepped and draped in usual sterile fashion. Left leg was elevated exsanguinated with use of an Esmarch interspace that 300 mmHg. An anterior approach of the left knee was then performed through longitudinal incision centered over the patella. Sharp dissection got through subcutaneous tissue down to the extensor mechanism. Medial parapatellar arthrotomy incision was made. Some subperiosteal dissection carried out medially for the fat pad was dissected from each patella tendon. Lateral patellofemoral ligament was released. Patella subluxated laterally and the knee was flexed.The osteophytes were taken off distal femur. The ACL and PCL were then released from distal femur and the tibia subluxated anteriorly. The external tibial alignment jig was then placed in the interface the tibia and adjusted 14 mm medially. The proximal tibial cut was made remove 1 mm bone from most efficient aspect medial till plateau. The tibia sized to a size 67. Attention drawn the femur. The distal femur exam with a sharp drop with intramedullary canal was suction. A left 5 degree valgus cutting guide was placed. Distal femoral cutting block was pinned in place but distal femoral cut was made to take an additional 3 mm bone off the distal femur. The femur was then sized to a size 60. The AP cutting block was pinned parallel to the epicondylar axis which was 5 degrees of external rotation. The anterior cut, anterior chamfer, posterior cut, posterior chamfer cuts were made. Box cutting guide was placed in just slight lateral and the box cut was made to the knee was flexed for the remnants of the medial lateral menisci were excised. Osteophytes were taken off the posterior aspect of the femur.The trial femoral component was placed. The tibial tray was pinned in maximum external rotation of the drill and stem punch used to create defect in proximal to for the tibial tray. The knee was then trialed the 10 mm insert fit most appropriately. I did leave this a little bit loose intentionally as her knee was extremely tight to start out. Attention drawn the patella. The patella was cleaned of all soft tissues. Patella thickness measured 22 mm in thickness cut down to 13. Size a size 28 patella. The lug holes were drilled for the 28 patella. The lateral osteophyte is moved. Patella button was placed. Knee was taken through range of motion patella tracked nicely with no thumbs test. Attention drawn to placing the permanent components. All trial components were removed. Bone plug was placed in the distal femur limit blood loss. L batch Palacos G cement was mixed. Biomet Vanguard size 60 left posterior stabilized femoral component, size 67 tibial tray, a 10 mm posterior stabilized polyethylene insert, and a 28 x 8 all polypatella then cemented in place. I did add an additional gram of vancomycin to her cement into her cement due to her increased risk of infection with very poorly controlled diabetes. The knee was brought out in full extension total cement hardened. Final cement check was then performed. The pericapsular tissues were injected with total 100 cc of combination 20 cc of Exparel, 30 cc normal saline, 50 cc of quarter percent Marcaine with epinephrine. Patient did receive 1 g tranexamic acid. The tourniquet was then let down for tourniquet time 60 minutes. Hemostasis assured use electrocautery. Extensor mechanism closed with combination 1 PDS suture #1 Vicryl suture in [id number] fashion to the extensor mechanism checked found to be intact the subcutaneous tissue then closed with 2-0 Dexon suture in a buried interrupted fashion the skin was closed skin carmen. Legs then cleaned dried a sterile dressing was Xeroform, 4 x 4's, sterile cast padding, Harsha bandage were applied. Patient then transferred to the recovery room in stable condition. Patient tolerated procedure well and there were no complications. Ignacio Patterson, my physician health care legal assistant, was present for the entire procedure. His assistance was essential and required for appropriate patient positioning, prepping and draping, surgical exposure, performing the technical details of the operation, placement the implants, closure of the wound, and placement of the sterile bandage. I attest to the content of the Intraoperative Record and any orders documented therein. Any exceptions are noted below.
[2020-09-15] MEDS: KETOROLAC 30 MG/ML VIAL IV SCH (18:39)
[2020-09-15] MEDS: FERROUS GLUCONATE 324 MG TAB PO SCH (18:39)
[2020-09-15] MEDS: INSULIN ASPART 100 UNITS/ML 3 ML PEN SQ SCH ×3 (18:40→21:58)
[2020-09-15] MEDS: SODIUM CHLORIDE 0.9% 1000ML 1,000 ML IV SCH (18:45)
[2020-09-15] MEDS: ceFAZolin 2000MG 2,000 MG/15 ML SYR IV SCH (20:10)
[2020-09-15] MEDS: ASPIRIN 81 MG ECTAB PO SCH (20:21)
[2020-09-15] MEDS: DOCUSATE SODIUM 100 MG CAP PO SCH (20:21)
[2020-09-15] MEDS: ASCORBIC ACID 500 MG TAB PO SCH (20:21)
[2020-09-15] MEDS: TIMOLOL MALEATE 0.5% OP SOLN 5 ML BTL OPB SCH (20:22)
[2020-09-15] MEDS: METOPROLOL TARTRATE 25 MG TAB PO SCH (20:22)
[2020-09-15] MEDS: SIMVASTATIN 20 MG TAB PO SCH (20:22)
[2020-09-15] MEDS: SENNA 8.6 MG TAB PO SCH (20:22)
[2020-09-15] MEDS: TAPENTADOL HCL ER 50 MG TABCR PO SCH (20:25)
--- NOTE | 2020-09-15 20:25 | Pharmacy Report ---
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 Will utilize overnight checks of Novolog this evening as well. PLAN FOR INPATIENT GLYCEMIC CONTROL: * Basal insulin * Levemir 14 units SC x 1 this evening * Levemir 9 units SQ BID starting tomorrow * Bolus insulin * NovoLog per scale ACHS or Q6hrs while NPO * Goal Range: Low 110 mg/dL - High 140 mg/dL * Correction Factor: 30 mg/dL/unit * Nutritional / Prandial insulin per carb ratio of 1 unit per 10 grams CHO consumed * checks with tightened parameters PLAN FOR DISCHARGE: * tbd
[2020-09-15] MEDS ORDERED: INSULIN DETEMIR FLEXPEN/FLEX TOUCH 100 UNITS/ML 3ML SQ ONE (21:00)
[2020-09-15] MEDS ORDERED: INSULIN DETEMIR FLEXPEN/FLEX TOUCH 100 UNITS/ML 3ML SQ SCH (21:00)
[2020-09-15] MEDS ORDERED: TRANEXAMIC ACID / 0.7% NACL 1,000 MG/100 ML BAG IV SCH (22:30)
[2020-09-16] MEDS: INSULIN ASPART 100 UNITS/ML 3 ML PEN SQ SCH ×7 (00:16→21:34)
[2020-09-16] MEDS: KETOROLAC 30 MG/ML VIAL IV SCH ×2 (00:19→06:05)
[2020-09-16] MEDS: Scopolamine CHECK PATCH PLACEMENT SCH ×4 (00:20→23:09)
[2020-09-16] MEDS: [UNRECOGNIZED DRUG - REMARK] SCH (00:48)
[2020-09-16] MEDS: ceFAZolin 2000MG 2,000 MG/15 ML SYR IV SCH (04:05)
[2020-09-16] MEDS: SODIUM CHLORIDE 0.9% 1000ML 1,000 ML IV SCH (04:47)
[2020-09-16] MEDS: LEVOTHYROXINE SODIUM 137 MCG TABLET PO SCH (06:05)
[2020-09-16 06:18] LABS: Hematocrit (blood only) 27.1 % (37-47); Hemoglobin 8.8 g/dL (12.0-16.0); Mean Corpuscular Hemoglobin 28.8 pg (25-34); Mean Corpuscular Hgb Conc 32.5 g/dL (32-36); Mean Corpuscular Volume 88.6 fL (80-100); Mean Platelet Volume 11.2 fL (7.4-10.4); Platelet Count 188 K/uL (130-400); RDW Coefficient of Variation 13.3 % (11.5-14.5); RDW Standard Deviation 43.2 fL (36.4-46.3); Red Blood Count 3.06 M/uL (4.2-5.4)
[2020-09-16 06:44] LABS: BUN Creatinine Ratio 21.7 (10-20); Calcium 7.8 mg/dl (8.5-10.1); Est GFR (African American) 34.4; Est GFR (Non-African American) 29.7; Potassium 4.9 mmol/L (3.5-5.1)
[2020-09-16] MEDS: PANTOprazole 40 MG TAB PO SCH (08:31)
[2020-09-16] MEDS: CHOLECALCIFEROL 1,000 UNITS 25 MCG TAB PO SCH (08:31)
[2020-09-16] MEDS: DOCUSATE SODIUM 100 MG CAP PO SCH ×2 (08:31→20:19)
[2020-09-16] MEDS: CYANOCOBALAMIN 500 MCG TABLET (VITAMIN B-12) PO SCH (08:32)
[2020-09-16] MEDS: FERROUS GLUCONATE 324 MG TAB PO SCH ×2 (08:32→17:42)
[2020-09-16] MEDS: ASCORBIC ACID 500 MG TAB PO SCH ×2 (08:32→20:19)
[2020-09-16] MEDS: MULTIVITAMIN TAB PO SCH (08:33)
[2020-09-16] MEDS: lisinopril 40 MG TAB PO SCH (08:34)
[2020-09-16] MEDS: ASPIRIN 81 MG ECTAB PO SCH ×2 (08:34→20:19)
[2020-09-16] MEDS: METOPROLOL TARTRATE 25 MG TAB PO SCH ×2 (08:35→20:18)
[2020-09-16] MEDS: TAPENTADOL HCL ER 50 MG TABCR PO SCH ×2 (08:40→20:26)
[2020-09-16] MEDS: INSULIN DETEMIR FLEXPEN/FLEX TOUCH 100 UNITS/ML 3ML SQ SCH ×2 (08:43→21:20)
[2020-09-16] MEDS ORDERED: SPIRONOLACTONE 25 MG TAB PO SCH (09:00)
[2020-09-16] MEDS ORDERED: FUROSEMIDE 40 MG TAB PO SCH (09:00)
[2020-09-16] MEDS ORDERED: MULTIVITAMIN TAB PO SCH (09:00)
--- NOTE | 2020-09-16 11:32 | Pharmacy Report ---
Pharmacy Glycemic Short Note 2 - Date of Service September 16, 2020 - Glycemic Short BSG Results (Last 24 hours): 09/15/20 09/15/20 09/15/20 11:37 12:19 12:33 Glucose POC Glucose 408 H* 379 H* 358 H* 09/15/20 09/15/20 09/15/20 13:02 14:16 15:48 Glucose POC Glucose 306 H* 247 H 208 H 09/15/20 09/15/20 09/15/20 16:36 17:23 20:31 Glucose POC Glucose 219 H 274 H 321 H* 09/15/20 09/16/20 09/16/20 20:32 00:02 03:56 Glucose POC Glucose 317 H* 184 H 100 H 09/16/20 09/16/20 05:28 08:16 Glucose 110 H POC Glucose 157 H OUTPATIENT ANTIDIABETIC REGIMEN: * Levemir 9 units SC BID * Novolog TIDM, per patient ~1 unit/10 g of CHO + SSI up to 50 units/day * HbA1c: 8.6% (07/27/20) ASSESSMENT: 09/16/20: * BSGs have resolved today after pt was hyperglycemic last evening. Expect that this was d/t Levemir being held pre-op. * Pt's home dose of Levemir was resumed this morning. Novolog parameters appear to be appropriate. * No further changes anticipated at this time. Will continue to monitor. 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 Will utilize overnight checks of Novolog this evening as well. PLAN FOR INPATIENT GLYCEMIC CONTROL: * Basal insulin * Levemir 9 units SQ BID * Bolus insulin * NovoLog per scale ACHS or Q6hrs while NPO * Goal Range: Low 110 mg/dL - High 140 mg/dL * Correction Factor: 30 mg/dL/unit * Nutritional / Prandial insulin per carb ratio of 1 unit per 10 grams CHO consumed * 00,04 checks with tightened parameters PLAN FOR DISCHARGE: * A1c: 8.6% * Target A1c for this patient ~<7%. Suspect that patient would benefit from additional insulin. * Recommend f/u with outpt provider to adjust insulin regimen and work toward optimizing A1c.
--- NOTE | 2020-09-16 14:06 | Hospitalist Consultation ---
Date of Consultation September 16, 2020 Assessment & Plan (1) S/P total knee arthroplasty: Mrs. Amador is a 60 year old female with a history of Hypertension, Dyslipidemia, Type 1 DM (since age 11), Hypothyroidism, GERD, and DJD of Bilateral Knees who underwent a Left TKA with Dr. Tafoya on 09/15/20. She tolerated this surgery well and did not have any surgical or anesthesia related complications. She has developed an asymptomatic post-op anemia with a Hgb of 8.8 g/dl today. Her surgical pain is very well controlled and she offers no complaints today. She will be evaluated by PT and OT. She has been ambulating in her room with difficulty or limiting cardiopulmonary symptoms. 1. Monitor daily CBC with diff, BMP. 2. DVT prophylaxis as per Orthopedics. 3. PT/OT Evaluations. (2) Type 1 diabetes mellitus: Type 1 DM since age 11. Follows with [facility] Endocrinology, Bianca CLAUDIO. Following surgery, her blood sugars were up in the 300's, but have subsequently trended down. 1. Continue Levemir 9 unit SQ b.i.d.. 2. Continue Novolog insulin on a sliding scale. 3. BSG checks qAC and qHS. 4. Diabetic diet. 5. Monitor daily labs. (3) Hypertension: BP appear to be controlled. 1. Continue Lisinopril 40 mg daily. 2. Continue Lopressor 12.5 mg b.i.d.. 3. Hold Spironolactone because of pre-renal azotemia. 4. Hold Furosemide due to pre-renal azotemia. 5. Monitor renal function. (4) Hyperlipidemia: Favorable lipid panel November 2019. Total cholesterol 172 mg/dl, HDL 83 mg/dl, LDL 75 mg/dl, TC::HDL Ratio is 2. -- Continue Simvastatin 20 mg daily. (5) Prerenal azotemia: Serum Creatinine is up to 1.81 mg/dl from 1.08 mg/dl preoperatively. -- Hold Lasix. -- Hold Spironolactone. -- Recheck BMP tomorrow morning. -- Stay well hydrated. -- Avoid NSAID's. History of Present Illness Reason for Consultation: -- Post-op Medical Management. -- POD#1 -- Type 1 Diabetes Mellitus. Requesting Physician: Philipp Tafoya MD Attending Physician: Awais Heath History of Present Illness Mrs. Amador is a 60 year old female with a history of Hypertension, Dyslipidemia, Type 1 DM (since age 11), Hypothyroidism, GERD, and DJD of Bilateral Knees who underwent a Left TKA with Dr. Tafoya on 09/15/20. She tolerated this surgery well and did not have any surgical or anesthesia related complications. She has developed a post-op anemia with a Hgb of 8.8 g/dl today. Patient is being seen in room 305 where she is sitting in a bedside chair. She offers no complaints today. Her knee pain is very well controlled and she states that she "has not had any pain at all". She has been ambulating in her room without difficulty. She denies any chest pain, SOB, ZUNIGA, or palpitations. She denies any nausea or vomiting. No headache and no neurologic symptoms. Allergies Allergy/AdvReac Type Severity Reaction Status Date / Time ceftriaxone [From Rocephin] Allergy Unknown Rash Verified 09/15/20 12:00 Sulfa (Sulfonamide Allergy Unknown Rash Verified 09/15/20 12:00 Antibiotics) Home Medications Medication Instructions Recorded Confirmed Type ascorbic acid (vitamin C) 1,000 mg 1 gm PO BID tab 12/12/18 09/15/20 History tablet aspirin 81 mg tablet,delayed 81 mg PO QAM tab 12/12/18 09/15/20 History release cholecalciferol (vitamin D3) 25 1,000 units PO QAM cap 12/12/18 09/15/20 History mcg (1,000 unit) capsule cyanocobalamin (vitamin B-12) 1,000 mcg PO QAM tab 12/12/18 09/15/20 History 1,000 mcg tablet multivitamin 1 tab PO QAM 12/12/18 09/15/20 History omeprazole 20 mg capsule,delayed 20 mg PO QAM #30 cap 12/12/18 09/15/20 History release blood sugar diagnostic #10 ea 01/16/19 08/10/20 History lancets 33 gauge #100 ea 01/16/19 08/10/20 History pen needle, diabetic 32 gauge x #200 ea 02/27/19 08/10/20 Rx 5/32" timolol 1 drp OPHTHALMIC (EYE) HS 03/18/19 09/15/20 History hydroxyzine pamoate 25 mg capsule 25 mg PO TID PRN #30 cap 11/22/19 09/15/20 Rx furosemide 40 mg tablet 40 mg PO QAM #14 tab 01/17/20 09/15/20 Rx simvastatin 20 mg tablet 20 mg PO HS #90 tab 01/17/20 09/15/20 Rx Levemir FlexTouch U-100 Insuln 100 9 unit SQ BID #30 ml NS 03/24/20 09/15/20 Rx unit/mL (3 mL) subcutaneous pen metoprolol tartrate 25 mg tablet 12.5 mg PO BID #7 tab NS 05/11/20 09/15/20 Rx Wheeled Walker #1 ea 07/06/20 08/10/20 Rx flash glucose scanning reader #1 ea 07/14/20 08/10/20 Rx flash glucose sensor #2 ea 07/14/20 08/10/20 Rx insulin aspart U-100 [Novolog 0 unit SQ UD 07/14/20 09/15/20 History Flexpen U-100 Insulin] levothyroxine 137 mcg PO QAM 07/14/20 09/15/20 History lisinopril 40 mg PO QAM 07/14/20 09/15/20 History triamcinolone acetonide 0.1 % 1 applic TOP UD PRN #80 g 07/14/20 09/15/20 Rx topical ointment glucagon (human recombinant) 1 mg 1 mg IM .COMPLEX PRN #2 ea 08/05/20 09/15/20 Rx solution for injection spironolactone 50 mg tablet 25 mg PO BID #90 tab 08/05/20 09/15/20 Rx Patient History Medical History Degenerative arthritis of knee, bilateral Glaucoma bilt History of COVID-19 Anosmia for about 2 months, has resolved. + RESULT MAR 27 2020 Hyperlipidemia Hypertension Hypothyroidism Osteoarthritis Type I diabetes mellitus Dx age 11, follows with [facility] endocrineBianca. Surgical History History of arthroscopy of left shoulder History of arthroscopy of right knee meniscus repair History of arthroscopy of right shoulder History of bilateral tubal ligation History of colonoscopy with polypectomy History of dilatation and curettage History of tooth extraction Family History Other Family history of diabetes mellitus No family history of adverse response to anesthesia Social History Smoking Status: Never smoker Second Hand Exposure: Yes (boyfriend smoked); Do You Dip or Chew Tobacco: No; Hx Alcohol Use: Yes Alcohol type: wine Hx Substance Use: No Preferred Language: Persian Communication Ability: Effective Rodeo Performer Required: No Beliefs That Will Affect Care: None Current Living Situation: Significant Other Other Information That Helps Us Care for You: No Feels Safe at Home: Yes Assistive Devices: Walker Assistive Devices Comment: READING GLASSES, LU Review of Systems Review of Systems: All systems reviewed & are unremarkable except as noted in Subjective Physical Exam Physical Exam: GENERAL: Patient in no acute distress. HEENT: Head is atraumatic, normocephalic. EOM's intact. Facies symmetric. No perioral cyanosis. NECK: No JVD. JVP is not elevated. Carotid upstrokes are + 2 bilaterally. No bruits are noted. CHEST/LUNGS: Clear to auscultation throughout all lung hudson. No wheezes, rales, or crackles. CVS: S1 and S2 are regular without obvious murmurs, gallops, or rubs. PMI is nonpalpable. No lifts, heaves, or thrills. No abdominal aortic or renal bruits. ABDOMINAL EXAM: Bowel sounds are present. No masses, organomegaly, or tenderness. EXTREMITIES: No clubbing or cyanosis. Left knee is dressed. Trace bilateral pretibial edema. Calves are soft, non-tender. Intact radial pulses bilaterally. NEUROLOGIC EXAM: Patient is awake, alert, and oriented. Pleasant and cooperative. Answers questions appropriately. Speech is clear. Normal movement in all 4 extremities. Gait pattern was not assessed. Results & Data Results & Data ([facility]) Vital Signs (Past 12 Hours) Vital Signs Temp Pulse Resp BP Pulse Ox 09/16/20 07:17 36.6 C 64 18 133/77 99 09/16/20 06:06 59 L 106/63 09/16/20 03:53 60 93/54 L 09/16/20 02:22 36.7 C 68 16 88/44 L 94 Laboratory Results Laboratory Results - last 24 hr 09/15/20 09/15/20 09/15/20 11:22 14:16 15:48 WBC RBC Hgb Hct MCV MCH MCHC RDW Std Deviation RDW Coeff of Natacha Plt Count MPV Sodium Potassium Chloride Carbon Dioxide Anion Gap BUN Creatinine Est Cr Clr Drug Dosing Est GFR ( Amer) Est GFR (Non-Af Amer) BUN/Creatinine Ratio Glucose POC Glucose 247 H 208 H Calcium Hepatitis C Ab Screen Neg 09/15/20 09/15/20 09/15/20 16:36 17:23 20:31 WBC RBC Hgb Hct MCV MCH MCHC RDW Std Deviation RDW Coeff of Natacha Plt Count MPV Sodium Potassium Chloride Carbon Dioxide Anion Gap BUN Creatinine Est Cr Clr Drug Dosing Est GFR ( Amer) Est GFR (Non-Af Amer) BUN/Creatinine Ratio Glucose POC Glucose 219 H 274 H 321 H* Calcium Hepatitis C Ab Screen 09/15/20 09/16/20 09/16/20 20:32 00:02 03:56 WBC RBC Hgb Hct MCV MCH MCHC RDW Std Deviation RDW Coeff of Natacha Plt Count MPV Sodium Potassium Chloride Carbon Dioxide Anion Gap BUN Creatinine Est Cr Clr Drug Dosing Est GFR ( Amer) Est GFR (Non-Af Amer) BUN/Creatinine Ratio Glucose POC Glucose 317 H* 184 H 100 H Calcium Hepatitis C Ab Screen 09/16/20 09/16/20 09/16/20 05:28 05:28 08:16 WBC 7.50 RBC 3.06 L Hgb 8.8 L Hct 27.1 L MCV 88.6 MCH 28.8 MCHC 32.5 RDW Std Deviation 43.2 RDW Coeff of Natacha 13.3 Plt Count 188 MPV 11.2 H Sodium 138 Potassium 4.9 Chloride 108 H Carbon Dioxide 23 Anion Gap 7.0 BUN 39 H Creatinine 1.81 H Est Cr Clr Drug Dosing 35.0 Est GFR ( Amer) 34.4 Est GFR (Non-Af Amer) 29.7 BUN/Creatinine Ratio 21.7 H Glucose 110 H POC Glucose 157 H Calcium 7.8 L Hepatitis C Ab Screen 09/16/20 11:50 WBC RBC Hgb Hct MCV MCH MCHC RDW Std Deviation RDW Coeff of Natacha Plt Count MPV Sodium Potassium Chloride Carbon Dioxide Anion Gap BUN Creatinine Est Cr Clr Drug Dosing Est GFR ( Amer) Est GFR (Non-Af Amer) BUN/Creatinine Ratio Glucose POC Glucose 264 H Calcium Hepatitis C Ab Screen Diagnostic Findings LEFT KNEE X-RAY 09/15/20: -- Left knee total joint arthroplasty and patella resurfacing. -- Anterior midline skin carmen are noted along with expected postsurgical soft tissue swelling with deep tissue air. -- No acute fracture, alignment or unexpected opaque foreign body. IMPRESSION: -- Left knee total joint arthroplasty with expected postoperative changes. Medications Administered Medications ascorbic acid (vitamin C) 1,000 mg tablet 1 gm PO BID tab 12/12/18 [History Confirmed 09/15/20] aspirin 81 mg tablet,delayed release 81 mg PO QAM tab 12/12/18 [History Confirmed 09/15/20] cholecalciferol (vitamin D3) 25 mcg (1,000 unit) capsule 1,000 units PO QAM cap 12/12/18 [History Confirmed 09/15/20] cyanocobalamin (vitamin B-12) 1,000 mcg tablet 1,000 mcg PO QAM tab 12/12/18 [History Confirmed 09/15/20] multivitamin 1 tab PO QAM 12/12/18 [History Confirmed 09/15/20] omeprazole 20 mg capsule,delayed release 20 mg PO QAM #30 cap 12/12/18 [History Confirmed 09/15/20] blood sugar diagnostic #10 ea 01/16/19 [History Confirmed 08/10/20] lancets 33 gauge #100 ea 01/16/19 [History Confirmed 08/10/20] pen needle, diabetic 32 gauge x 5/32" #200 ea 02/27/19 [Rx Confirmed 08/10/20] timolol 1 drp OPHTHALMIC (EYE) HS 03/18/19 [History Confirmed 09/15/20] hydroxyzine pamoate 25 mg capsule 25 mg PO TID PRN #30 cap 11/22/19 [Rx Confirmed 09/15/20] furosemide 40 mg tablet 40 mg PO QAM #14 tab 01/17/20 [Rx Confirmed 09/15/20] simvastatin 20 mg tablet 20 mg PO HS #90 tab 01/17/20 [Rx Confirmed 09/15/20] Levemir FlexTouch U-100 Insuln 100 unit/mL (3 mL) subcutaneous pen 9 unit SQ BID #30 ml NS 03/24/20 [Rx Confirmed 09/15/20] metoprolol tartrate 25 mg tablet 12.5 mg PO BID #7 tab NS 05/11/20 [Rx Confirmed 09/15/20] Wheeled Walker #1 ea 07/06/20 [Rx Confirmed 08/10/20] flash glucose scanning reader #1 ea 07/14/20 [Rx Confirmed 08/10/20] flash glucose sensor #2 ea 07/14/20 [Rx Confirmed 08/10/20] insulin aspart U-100 [Novolog Flexpen U-100 Insulin] 0 unit SQ UD 07/14/20 [History Confirmed 09/15/20] levothyroxine 137 mcg PO QAM 07/14/20 [History Confirmed 09/15/20] lisinopril 40 mg PO QAM 07/14/20 [History Confirmed 09/15/20] triamcinolone acetonide 0.1 % topical ointment 1 applic TOP UD PRN #80 g 07/14/20 [Rx Confirmed 09/15/20] glucagon (human recombinant) 1 mg solution for injection 1 mg IM .COMPLEX PRN #2 ea 08/05/20 [Rx Confirmed 09/15/20] spironolactone 50 mg tablet 25 mg PO BID #90 tab 08/05/20 [Rx Confirmed 09/15/20] Home Medications Al Hydrox/Mg Hydrox/Simethicone (Aluminum/Magnesium Susp 30 Ml Udc) 15 ml PO Q4H PRN PRN Reason: Heartburn Stop: 10/15/20 17:32 Ascorbic Acid (Ascorbic Acid 500 Mg Tab) 1,000 mg PO BID DAE Stop: 10/15/20 20:59 Last Admin: 09/16/20 08:32 Dose: 1,000 mg Documented by: Aspirin (Aspirin 81 Mg Ectab) 81 mg PO BID DAE Stop: 10/15/20 20:59 Last Admin: 09/16/20 08:34 Dose: 81 mg Documented by: Bisacodyl (Bisacodyl 10 Mg Supp) 10 mg SD DAILY PRN PRN Reason: Constipation Stop: 10/15/20 17:32 Cyanocobalamin (Cyanocobalamin 500 Mcg Tablet (Vitamin B-12)) 1,000 mcg PO QAM [facility] Stop: 10/16/20 08:59 Last Admin: 09/16/20 08:32 Dose: 1,000 mcg Documented by: Dextrose (Dextrose 50% 50 Ml Syringe) 25 - 50 ml IV UD PRN; Protocol PRN Reason: Hypoglycemia Protocol Stop: 10/15/20 17:32 Diphenhydramine HCl (Diphenhydramine Capsule 25 Mg Cap) 25 mg PO Q8H PRN PRN Reason: Itching Stop: 10/15/20 17:32 Docusate Sodium (Docusate Sodium 100 Mg Cap) 100 mg PO BID [facility] Stop: 10/15/20 20:59 Last Admin: 09/16/20 08:31 Dose: 100 mg Documented by: Ferrous Gluconate (Ferrous Gluconate 324 Mg Tab) 324 mg PO BIDM [facility] Stop: 10/15/20 17:32 Last Admin: 09/16/20 08:32 Dose: 324 mg Documented by: Furosemide (Furosemide 40 Mg Tab) 40 mg PO QAM [facility] Stop: 10/16/20 08:59 Last Admin: 09/16/20 08:34 Dose: 40 mg Documented by: Glucagon (Glucagon For Inj 1 Mg Vial) 1 mg SQ UD PRN; Protocol PRN Reason: Hypoglycemia Protocol Stop: 10/15/20 17:32 Glucose (Glucose 10 Tabs/Tube) 4 - 8 tabs PO UD PRN; Protocol PRN Reason: Hypoglycemia Protocol Stop: 10/15/20 17:32 Glucose (Glucose 40% Gel 15 Gm Tube) 15 - 30 gm PO UD PRN; Protocol PRN Reason: Hypoglycemia Protocol Stop: 10/15/20 17:32 Hydromorphone HCl (Hydromorphone Inj 0.5 Mg/0.5 Ml Syr) 0.5 mg IV Q4H PRN PRN Reason: Pain or Pre PT Stop: 09/29/20 17:32 Hydroxyzine HCl (Hydroxyzine Hcl 25 Mg Tab) 25 mg PO TID PRN PRN Reason: itching Stop: 10/15/20 17:32 Insulin Aspart (Insulin Aspart 100 Units/Ml 3 Ml Pen) 0 units SQ ACHS [facility] Stop: 10/15/20 18:14 Last Admin: 09/16/20 12:36 Dose: 4 units Documented by: Insulin Detemir (Insulin Detemir Flexpen/Flex Touch 100 Units/Ml 3ml) 9 units SQ BID [facility] Stop: 10/16/20 08:59 Last Admin: 09/16/20 08:43 Dose: 9 units Documented by: Levothyroxine Sodium (Levothyroxine Sodium 137 Mcg Tablet) 137 mcg PO DAILYBB [facility] Stop: 10/16/20 06:29 Last Admin: 09/16/20 06:05 Dose: 137 mcg Documented by: Lisinopril (Lisinopril 40 Mg Tab) 40 mg PO QAM [facility] Stop: 10/16/20 08:59 Last Admin: 09/16/20 08:34 Dose: 40 mg Documented by: Magnesium Hydroxide (Magnesium Hydroxide Susp 30 Ml Udc) 30 ml PO Q6H PRN PRN Reason: Constipation Stop: 10/15/20 17:32 Metoclopramide HCl (Metoclopramide Hcl Inj 5 Mg/Ml 2 Ml Vial) 10 mg IV Q6H PRN PRN Reason: Nausea And Vomiting Stop: 10/15/20 17:32 Metoprolol Tartrate (Metoprolol Tartrate 25 Mg Tab) 12.5 mg PO BID [facility] Stop: 10/15/20 20:59 Last Admin: 09/16/20 08:35 Dose: 12.5 mg Documented by: Miscellaneous (Scopolamine Check Patch Placement) 1 ea N/A QS [facility] Stop: 09/18/20 07:59 Last Admin: 09/16/20 08:34 Dose: 1 ea Documented by: Miscellaneous (Scopolamine Remove Transderm Patch) 1 ea N/A ONE ONE Stop: 09/18/20 08:01 Miscellaneous (Carbohydrates For Hypoglycemia ) 15 - 30 gm PO UD PRN PRN Reason: Hypoglycemia Protocol Stop: 10/15/20 17:32 Miscellaneous Information (Pharmacy Glycemic Mgmt Consult) 1 ea N/A UD PRN PRN Reason: Consult Stop: 10/15/20 17:42 [facility]ivitamins ([facility]ivitamin Tab) [facility] Stop: 10/16/20 08:59 Last Admin: 09/16/20 08:33 Dose: 1 tab Documented by: Naloxone HCl (Naloxone Hcl 0.4 Mg/1 Ml Vial/Carp) 0.1 mg IV Q5M PRN PRN Reason: Oversedation/Resp Depression Stop: 10/15/20 17:32 Ondansetron HCl (Ondansetron Inj 2 Mg/Ml 2 Ml Vial) 4 mg IV Q6H PRN PRN Reason: Nausea And Vomiting Stop: 10/15/20 17:32 Oxycodone HCl (Oxycodone Hcl Ir 5 Mg Tab (Immediate Release)) 5 - 10 mg PO Q6H PRN PRN Reason: Pain or Pre PT Stop: 09/29/20 17:32 Pantoprazole Sodium (Pantoprazole 40 Mg Tab) 40 mg PO QAM [facility] Stop: 10/16/20 08:59 Last Admin: 09/16/20 08:31 Dose: 40 mg Documented by: Sennosides (Senna 8.6 Mg Tab) 17.2 mg PO [facility] Stop: 10/15/20 20:59 Last Admin: 09/15/20 20:22 Dose: 17.2 mg Documented by: Simvastatin (Simvastatin 20 Mg Tab) 20 mg PO [facility] Stop: 10/15/20 20:59 Last Admin: 09/15/20 20:22 Dose: 20 mg Documented by: Spironolactone (Spironolactone 25 Mg Tab) 25 mg PO BID17 [facility] Stop: 10/16/20 08:59 Last Admin: 09/16/20 08:32 Dose: 25 mg Documented by: Tapentadol (Tapentadol Hcl Er 50 Mg Tabcr) 50 mg PO Q12 [facility] Stop: 09/29/20 20:59 Last Admin: 09/16/20 08:40 Dose: 50 mg Documented by: Timolol Maleate (Timolol Maleate 0.5% Op Soln 5 Ml Btl) 1 drops OPB [facility] Stop: 10/15/20 20:59 Last Admin: 09/15/20 20:22 Dose: 1 drops Documented by: Triamcinolone Acetonide (Triamcinolone Acet 0.1% Oint 15 Gm Tube) 1 appln TOP BID PRN PRN Reason: Skin Irritation Stop: 10/15/20 17:32 Vitamin D (Cholecalciferol 1,000 Units 25 Mcg Tab) 1,000 [facility] Stop: 10/16/20 08:59 Last Admin: 09/16/20 08:31 Dose: 1,000 units Documented by: PG Care Time/CCT Total # of Minutes Spent Total Time Spent with Patient: Total time spent is greater than 50% in coordination of care (as documented) at patient's floor/unit and/or counseling patient:35 Coding Level of Care Code 37591 Inpt Consult Level 4 Diagnoses S/P total knee arthroplasty Z96.659 Type 1 diabetes mellitus E10.9 Hypertension I10 Hyperlipidemia E78.5 Prerenal azotemia R79.89 Time Spent (min) 60
[2020-09-16] MEDS ORDERED: SODIUM CHLORIDE 0.9% 1000ML 1,000 ML IV SCH ×2 (18:30→22:30)
--- NOTE | 2020-09-16 19:00 | Progress Notes ---
DATE: 09/16/2020 SUBJECTIVE: A 60-year-old white female postop day 1 from left knee replacement. She is doing well this morning. Denies any significant pain currently. No chest pain or shortness of breath. Not feeling dizzy or lightheaded. OBJECTIVE: VITAL SIGNS: Temperature 36.5. Vital signs are stable. GENERAL: Shows a pleasant, middle-aged female. She is sitting up in bed and looks pretty comfortable. LUNGS: Clear to auscultation. HEART: Has regular rate and rhythm. ABDOMEN: Soft, nontender, nondistended. EXTREMITIES: Grossly neurovascularly intact except as follows: Examination of the left leg reveals the leg to be well aligned. Dressing is clean, dry and intact. She can dorsiflex and plantarflex her foot appropriately. She can do a straight leg raise. She is neurologically intact. LABORATORY DATA: Hemoglobin 8.8. Hematocrit 27.1. Electrolytes are stable. Creatinine is slightly elevated at 1.81. Glucoses are still poorly controlled. ASSESSMENT: A 60-year-old white female, fairly poorly controlled diabetic, postop day 1 from a left knee replacement, doing pretty well. Pain is controlled. She is neurologically intact. She is anemic, but without symptoms. She adamantly says that she does not want to go home today for concerns of just pain and the unexpected. Her hemoglobin is a bit low, but she is asymptomatic. We do need to follow her creatinine. We will stop her Toradol. PLAN: 1. DVT prophylaxis including thigh-high TEDs, SCDs, and aspirin twice a day. 2. PT/OT. Weight bear as tolerated. Left total knee protocol. 3. Pain control, doing okay with current pain regimen. 4. Elevated creatinine. We are going to stop her Toradol. We will encourage p.o. intake. We will check her creatinine tomorrow. 5. Disposition: She is hoping to be discharged to home with home health. She would like to stay today and see how things go and we will hopefully get her home tomorrow with home health.
[2020-09-16] MEDS: SIMVASTATIN 20 MG TAB PO SCH (20:19)
[2020-09-16] MEDS: SENNA 8.6 MG TAB PO SCH (20:19)
[2020-09-16] MEDS: TIMOLOL MALEATE 0.5% OP SOLN 5 ML BTL OPB SCH (20:20)
[2020-09-17] MEDS: LEVOTHYROXINE SODIUM 137 MCG TABLET PO SCH (05:34)
[2020-09-17 06:41] LABS: Hemoglobin 9.1 g/dL (12.0-16.0)
[2020-09-17 07:10] LABS: Potassium 4.9 mmol/L (3.5-5.1)
[2020-09-17 07:11] LABS: BUN Creatinine Ratio 24.2 (10-20); Calcium 7.9 mg/dl (8.5-10.1); Creatinine Clr Calc Pharmacy 43.7 ml/min; Est GFR (African American) 44.9 ml/min; Est GFR (Non-African American) 38.8 ml/min
--- NOTE | 2020-09-17 07:18 | Orthopedic Progress Note ---
Date of Service September 17, 2020 Assessment & Plan (1) Status post total left knee replacement: She was seen and examined by Dr. Tafoya today. She has some more pain which is not unexpected at this point. Continue current pain regimen. Continue PT/OT. WBAT. Dvt prophylaxis. Discharge home today with home health. Subjective . POD #2 from left tka. She's doing okay. She had more pain with the knee last night. Mostly around her quad. No chest pain or shortness of breath. Review of Systems All systems reviewed & are unremarkable except as noted in HPI & below. Physical Exam . Alert and oriented. NAD .VSS Left leg: Able to dorsiflex and plantarflex. NVI. Aligned of her knee is appropriate. Results & Data Results & Data Laboratory Results . Diagnostic Findings . PG Care Time/CCT Total # of Minutes Spent Total Time Spent with Patient: Total time spent is greater than 50% in coordina tion of care (as documented) at patient's floor/unit and/or counseling patient: Coding Level of Care Code 06578 Post Operative Follow-Up Diagnoses Status post total left knee replacement Z96.652
[2020-09-17] MEDS: Scopolamine CHECK PATCH PLACEMENT SCH (07:44)
[2020-09-17] MEDS: DOCUSATE SODIUM 100 MG CAP PO SCH (08:34)
[2020-09-17] MEDS: CYANOCOBALAMIN 500 MCG TABLET (VITAMIN B-12) PO SCH (08:34)
[2020-09-17] MEDS: MULTIVITAMIN TAB PO SCH (08:34)
[2020-09-17] MEDS: lisinopril 40 MG TAB PO SCH (08:35)
[2020-09-17] MEDS: INSULIN ASPART 100 UNITS/ML 3 ML PEN SQ SCH (08:35)
[2020-09-17] MEDS: PANTOprazole 40 MG TAB PO SCH (08:35)
[2020-09-17] MEDS: METOPROLOL TARTRATE 25 MG TAB PO SCH (08:38)
[2020-09-17] MEDS: CHOLECALCIFEROL 1,000 UNITS 25 MCG TAB PO SCH (08:38)
[2020-09-17] MEDS: ASCORBIC ACID 500 MG TAB PO SCH (08:38)
[2020-09-17] MEDS: ASPIRIN 81 MG ECTAB PO SCH (08:38)
[2020-09-17] MEDS: FERROUS GLUCONATE 324 MG TAB PO SCH (08:38)
[2020-09-17] MEDS: TAPENTADOL HCL ER 50 MG TABCR PO SCH (08:46)
[2020-09-17] MEDS ORDERED: INSULIN DETEMIR FLEXPEN/FLEX TOUCH 100 UNITS/ML 3ML SQ SCH (09:00)
--- NOTE | 2020-09-17 11:00 | Hospitalist Progress Note ---
Date of Service September 17, 2020 Assessment & Plan (1) S/P total knee arthroplasty: Mrs. Amador is a 60 year old female with a history of Hypertension, Dyslipidemia, Type 1 DM (since age 11), Hypothyroidism, GERD, and DJD of Bilateral Knees who underwent a Left TKA with Dr. Tafoya on 09/15/20. She tolerated this surgery well and did not have any surgical or anesthesia related complications. She has developed an asymptomatic post-op anemia with a Hgb of 8.8 g/dl yesterday. Her hemoglobin has subsequently increased to > 9 g/dl today. Yesterday I was contacted about patient's decreased urine output. This was likely because I held her diuretics related to worsening renal function. She was given IV fluids, and her urine output has improved. Her creatinine is improving as well. Serum Creatinine was 1.81 mg/dl yesterday, it is now down to 1.45 mg/dl. She has been ambulating in her room and the hallways without difficulty or limiting cardiopulmonary symptoms. Patient is participating in physical therapy and that is going well. Patient is stable for discharge to home from a medical standpoint. (2) Type 1 diabetes mellitus: Type 1 DM since age 11. Follows with [facility], Bianca CLAUDIO. Following surgery, her blood sugars were up in the 300's, but have subsequently trended down. 1. Continue Levemir 9 unit SQ b.i.d.. 2. Continue Novolog insulin on a sliding scale. 3. BSG checks qAC and qHS. 4. Diabetic diet. (3) Hypertension: BP appear to be controlled. 1. Continue Lisinopril 40 mg daily. 2. Continue Lopressor 12.5 mg b.i.d.. 3. Resume Spironolactone 25 mg b.i.d. following discharge. 4. Resume Furosemide 40 mg daily following discharge. (4) Hyperlipidemia: Favorable lipid panel November 2019. Total cholesterol 172 mg/dl, HDL 83 mg/dl, LDL 75 mg/dl, TC::HDL Ratio is 2. -- Continue Simvastatin 20 mg daily. (5) Prerenal azotemia: Serum Creatinine is down to 1.45 mg/dl today from 1.81 mg/dl yesterday. -- Stay well hydrated. -- Avoid NSAID's. Admission and Anticipated Discharge Date Admission Date: September 15, 2020 Subjective Mrs. Amador is now POD#2 from a Left TKA. Patient developed a postoperative anemia, with her hemoglobin dropping down to 8.8 g/dl yesterday. Her current hemoglobin has subsequently increased to > 9 g/dl today. also, yesterday I was contacted patient was not putting out much urine, likely because I held her diuretics related to worsening renal function. She was given IV fluids, and her urine output has improved. Her creatinine is improving as well. It was 1.81 yesterday, it is now down to 1.45 mg/dl. Patient is feeling well today. Her distal quadriceps are sore, but the knee itself is not painful. Patient has been ambulating with physical therapy and tolerating it well. Patient offers no other complaints. She denies any chest pain, shortness of breath, calf pain, cough, or any pleuritic chest discomfort. Patient is being discharged to home today. Review of Systems Review of Systems: All systems reviewed & are unremarkable except as noted in Subjective Physical Exam Physical Exam: GENERAL: Patient in no acute distress. HEENT: Head is atraumatic, normocephalic. EOM's intact. Facies symmetric. No perioral cyanosis. NECK: No JVD. JVP is not elevated. Carotid upstrokes are + 2 bilaterally. No bruits are noted. CHEST/LUNGS: Clear to auscultation throughout all lung [place]. No wheezes, rales, or crackles. CVS: S1 and S2 are regular without obvious murmurs, gallops, or rubs. PMI is nonpalpable. No lifts, heaves, or thrills. No abdominal aortic or renal bruits. ABDOMINAL EXAM: Bowel sounds are present. No masses, organomegaly, or tenderness. EXTREMITIES: No clubbing or cyanosis. Left knee is dressed. Trace bilateral pretibial edema. Calves are soft, non-tender. Intact radial pulses bilaterally. NEUROLOGIC EXAM: Patient is awake, alert, and oriented. Pleasant and cooperative. Answers questions appropriately. Speech is clear. Normal movement in all 4 extremities. Gait pattern was not assessed. Results & Data Results & Data ([facility]) Vital Signs (Past 12 Hours) Vital Signs Temp Pulse Resp BP Pulse Ox 09/17/20 07:09 37.2 C 73 18 138/72 94 Laboratory Results Laboratory Results - last 24 hr 05/12/21 05/12/21 05/12/21 11:50 17:14 20:46 Hgb Hct Sodium Potassium Chloride Carbon Dioxide Anion Gap BUN Creatinine Est Cr Clr Drug Dosing Est GFR ( Amer) Est GFR (Non-Af Amer) BUN/Creatinine Ratio Glucose POC Glucose 264 H 100 H 133 H Calcium 09/17/20 09/17/20 09/17/20 01:08 05:49 05:49 Hgb 9.1 L Hct 27.0 L Sodium 135 L Potassium 4.9 Chloride 106 Carbon Dioxide 22 Anion Gap 7.0 BUN 35 H Creatinine 1.45 H D Est Cr Clr Drug Dosing 43.7 Est GFR ( Amer) 44.9 Est GFR (Non-Af Amer) 38.8 BUN/Creatinine Ratio 24.2 H Glucose 245 H POC Glucose 210 H Calcium 7.9 L 09/17/20 08:27 Hgb Hct Sodium Potassium Chloride Carbon Dioxide Anion Gap BUN Creatinine Est Cr Clr Drug Dosing Est GFR ( Amer) Est GFR (Non-Af Amer) BUN/Creatinine Ratio Glucose POC Glucose 262 H Calcium Medications Administered Medications ascorbic acid (vitamin C) 1,000 mg tablet 1 gm PO BID tab 12/12/18 [History Confirmed 09/15/20] cholecalciferol (vitamin D3) 25 mcg (1,000 unit) capsule 1,000 units PO QAM cap 12/12/18 [History Confirmed 09/15/20] cyanocobalamin (vitamin B-12) 1,000 mcg tablet 1,000 mcg PO QAM tab 12/12/18 [History Confirmed 09/15/20] multivitamin 1 tab PO QAM 12/12/18 [History Confirmed 09/15/20] omeprazole 20 mg capsule,delayed release 20 mg PO QAM #30 cap 12/12/18 [History Confirmed 09/15/20] blood sugar diagnostic #10 ea 01/16/19 [History Confirmed 08/10/20] lancets 33 gauge #100 ea 01/16/19 [History Confirmed 08/10/20] pen needle, diabetic 32 gauge x 5/32" #200 ea 02/27/19 [Rx Confirmed 08/10/20] timolol 1 drp OPHTHALMIC (EYE) HS 03/18/19 [History Confirmed 09/15/20] hydroxyzine pamoate 25 mg capsule 25 mg PO TID PRN #30 cap 11/22/19 [Rx Confirmed 09/15/20] furosemide 40 mg tablet 40 mg PO QAM #14 tab 01/17/20 [Rx Confirmed 09/15/20] simvastatin 20 mg tablet 20 mg PO HS #90 tab 01/17/20 [Rx Confirmed 09/15/20] Levemir FlexTouch U-100 Insuln 100 unit/mL (3 mL) subcutaneous pen 9 unit SQ BID #30 ml NS 03/24/20 [Rx Confirmed 09/15/20] metoprolol tartrate 25 mg tablet 12.5 mg PO BID #7 tab NS 05/11/20 [Rx Confirmed 09/15/20] Wheeled Walker #1 ea 07/06/20 [Rx Confirmed 08/10/20] flash glucose scanning reader #1 ea 07/14/20 [Rx Confirmed 08/10/20] flash glucose sensor #2 ea 07/14/20 [Rx Confirmed 08/10/20] insulin aspart U-100 [Novolog Flexpen U-100 Insulin] 0 unit SQ UD 07/14/20 [History Confirmed 09/15/20] levothyroxine 137 mcg PO QAM 07/14/20 [History Confirmed 09/15/20] lisinopril 40 mg PO QAM 07/14/20 [History Confirmed 09/15/20] triamcinolone acetonide 0.1 % topical ointment 1 applic TOP UD PRN #80 g 07/14/20 [Rx Confirmed 09/15/20] glucagon (human recombinant) 1 mg solution for injection 1 mg IM .COMPLEX PRN #2 ea 08/05/20 [Rx Confirmed 09/15/20] spironolactone 50 mg tablet 25 mg PO BID #90 tab 08/05/20 [Rx Confirmed 09/15/20] aspirin 81 mg PO BID 45 Days #90 tab 09/16/20 [Rx] ferrous gluconate 324 mg PO BIDM 30 Days #60 tab 09/16/20 [Rx] oxycodone 5 - 10 mg PO Q6H PRN #40 tab 09/16/20 [Rx] Home Medications Al Hydrox/Mg Hydrox/Simethicone (Aluminum/Magnesium Susp 30 Ml Udc) 15 ml PO Q4H PRN PRN Reason: Heartburn Stop: 10/15/20 17:32 Ascorbic Acid (Ascorbic Acid 500 Mg Tab) 1,000 mg PO BID [facility] Stop: 10/15/20 20:59 Last Admin: 09/17/20 08:38 Dose: 1,000 mg Documented by: Aspirin (Aspirin 81 Mg Ectab) 81 mg PO BID [facility] Stop: 10/15/20 20:59 Last Admin: 09/17/20 08:38 Dose: 81 mg Documented by: Bisacodyl (Bisacodyl 10 Mg Supp) 10 mg WI DAILY PRN PRN Reason: Constipation Stop: 10/15/20 17:32 Cyanocobalamin (Cyanocobalamin 500 Mcg Tablet (Vitamin B-12)) 1,000 mcg PO QAM [facility] Stop: 10/16/20 08:59 Last Admin: 09/17/20 08:34 Dose: 1,000 mcg Documented by: Dextrose (Dextrose 50% 50 Ml Syringe) 25 - 50 ml IV UD PRN; Protocol PRN Reason: Hypoglycemia Protocol Stop: 10/15/20 17:32 Diphenhydramine HCl (Diphenhydramine Capsule 25 Mg Cap) 25 mg PO Q8H PRN PRN Reason: Itching Stop: 10/15/20 17:32 Docusate Sodium (Docusate Sodium 100 Mg Cap) 100 mg PO BID [facility] Stop: 10/15/20 20:59 Last Admin: 09/17/20 08:34 Dose: 100 mg Documented by: Ferrous Gluconate (Ferrous Gluconate 324 Mg Tab) 324 mg PO BIDM [facility] Stop: 10/15/20 17:32 Last Admin: 09/17/20 08:38 Dose: 324 mg Documented by: Furosemide (Furosemide 40 Mg Tab) 40 mg PO QAM [facility] Stop: 10/16/20 08:59 Last Admin: 09/16/20 08:34 Dose: 40 mg Documented by: Glucagon (Glucagon For Inj 1 Mg Vial) 1 mg SQ UD PRN; Protocol PRN Reason: Hypoglycemia Protocol Stop: 10/15/20 17:32 Glucose (Glucose 10 Tabs/Tube) 4 - 8 tabs PO UD PRN; Protocol PRN Reason: Hypoglycemia Protocol Stop: 10/15/20 17:32 Glucose (Glucose 40% Gel 15 Gm Tube) 15 - 30 gm PO UD PRN; Protocol PRN Reason: Hypoglycemia Protocol Stop: 10/15/20 17:32 Hydromorphone HCl (Hydromorphone Inj 0.5 Mg/0.5 Ml Syr) 0.5 mg IV Q4H PRN PRN Reason: Pain or Pre PT Stop: 09/29/20 17:32 Hydroxyzine HCl (Hydroxyzine Hcl 25 Mg Tab) 25 mg PO TID PRN PRN Reason: itching Stop: 10/15/20 17:32 Sodium Chloride (Nss 1000ml) 1,000 mls @ 80 mls/hr IV .[id number] [facility] Stop: 10/16/20 22:29 Last Admin: 09/16/20 23:08 Dose: 80 mls/hr Documented by: Insulin Aspart (Insulin Aspart 100 Units/Ml 3 Ml Pen) 0 units SQ ACHS [facility] Stop: 10/15/20 18:14 Last Admin: 09/17/20 08:35 Dose: 8 units Documented by: Insulin Detemir (Insulin Detemir Flexpen/Flex Touch 100 Units/Ml 3ml) 0 units SQ BID [facility]; Protocol Stop: 10/17/20 08:59 Last Admin: 09/17/20 08:39 Dose: 11 units Documented by: Levothyroxine Sodium (Levothyroxine Sodium 137 Mcg Tablet) 137 mcg PO DAILYBB [facility] Stop: 10/16/20 06:29 Last Admin: 09/17/20 05:34 Dose: 137 mcg Documented by: Lisinopril (Lisinopril 40 Mg Tab) 40 mg PO QAM [facility] Stop: 10/16/20 08:59 Last Admin: 09/17/20 08:35 Dose: 40 mg Documented by: Magnesium Hydroxide (Magnesium Hydroxide Susp 30 Ml Udc) 30 ml PO Q6H PRN PRN Reason: Constipation Stop: 10/15/20 17:32 Metoclopramide HCl (Metoclopramide Hcl Inj 5 Mg/Ml 2 Ml Vial) 10 mg IV Q6H PRN PRN Reason: Nausea And Vomiting Stop: 10/15/20 17:32 Metoprolol Tartrate (Metoprolol Tartrate 25 Mg Tab) 12.5 mg PO BID [facility] Stop: 10/15/20 20:59 Last Admin: 09/17/20 08:38 Dose: 12.5 mg Documented by: Miscellaneous (Scopolamine Check Patch Placement) 1 ea N/A QS [facility] Stop: 09/18/20 07:59 Last Admin: 09/17/20 07:44 Dose: 1 ea Documented by: Miscellaneous (Scopolamine Remove Transderm Patch) 1 ea N/A ONE ONE Stop: 09/18/20 08:01 Miscellaneous (Carbohydrates For Hypoglycemia ) 15 - 30 gm PO UD PRN PRN Reason: Hypoglycemia Protocol Stop: 10/15/20 17:32 Miscellaneous Information (Pharmacy Glycemic Mgmt Consult) 1 ea N/A UD PRN PRN Reason: Consult Stop: 10/15/20 17:42 Multivitamins (Multivitamin Tab) 1 tab PO [facility] Stop: 10/16/20 08:59 Last Admin: 09/17/20 08:34 Dose: 1 tab Documented by: Naloxone HCl (Naloxone Hcl 0.4 Mg/1 Ml Vial/Carp) 0.1 mg IV Q5M PRN PRN Reason: Oversedation/Resp Depression Stop: 10/15/20 17:32 Ondansetron HCl (Ondansetron Inj 2 Mg/Ml 2 Ml Vial) 4 mg IV Q6H PRN PRN Reason: Nausea And Vomiting Stop: 10/15/20 17:32 Oxycodone HCl (Oxycodone Hcl Ir 5 Mg Tab (Immediate Release)) 5 - 10 mg PO Q6H PRN PRN Reason: Pain or Pre PT Stop: 09/29/20 17:32 Last Admin: 09/17/20 07:44 Dose: 10 mg Documented by: Pantoprazole Sodium (Pantoprazole 40 Mg Tab) [facility] [place]: 10/16/20 08:59 Last Admin: 09/17/20 08:35 Dose: 40 mg Documented by: Sennosides (Senna 8.6 Mg Tab) 17.2 mg PO [facility] Stop: 10/15/20 20:59 Last Admin: 09/16/20 20:19 Dose: 17.2 mg Documented by: Simvastatin (Simvastatin 20 Mg Tab) 20 mg PO [facility] Stop: 10/15/20 20:59 Last Admin: 09/16/20 20:19 Dose: 20 mg Documented by: Spironolactone (Spironolactone 25 Mg Tab) 25 mg PO BID17 [facility] Stop: 10/16/20 08:59 Last Admin: 09/16/20 08:32 Dose: 25 mg Documented by: Tapentadol (Tapentadol Hcl Er 50 Mg Tabcr) 50 mg PO Q12 [facility] Stop: 09/29/20 20:59 Last Admin: 09/17/20 08:46 Dose: Not Given Documented by: Timolol Maleate (Timolol Maleate 0.5% Op Soln 5 Ml Btl) 1 drops OPB HS [facility] Stop: 10/15/20 20:59 Last Admin: 09/16/20 20:20 Dose: 1 drops Documented by: Triamcinolone Acetonide (Triamcinolone Acet 0.1% Oint 15 Gm Tube) 1 appln TOP BID PRN PRN Reason: Skin Irritation Stop: 10/15/20 17:32 Vitamin D (Cholecalciferol 1,000 Units 25 Mcg Tab) 1,000 units PO QAM [facility] Stop: 10/16/20 08:59 Last Admin: 09/17/20 08:38 Dose: 1,000 units Documented by: PG Care Time/CCT Total # of Minutes Spent Total Time Spent with Patient: Total time spent is greater than 50% in coordination of care (as documented) at patient's floor/unit and/or counseling patient:25 Coding Level of Care Code 16185 Subseq Hosp Care Lvl 3 Diagnoses S/P total knee arthroplasty Z96.659 Type 1 diabetes mellitus E10.9 Hypertension I10 Hyperlipidemia E78.5 Prerenal azotemia R79.89 Time Spent (min) 45
--- NOTE | 2020-09-21 08:44 | Discharge Summary ---
Date of Service September 21, 2020 Discharge Data Consultations 09/15/20 17:33 Consult Hospitalist Routine Procedures Performed Operation Date: 09/15/20 13:50 Actual Procedures p Left Total Knee Replacement(Left) - Philipp Tafoya MD Hospital Course (1) Status post total left knee replacement: This patient is a 60 year old female admitted on 09/15/20 and underwent total knee arthroplasty. She tolerated the procedure well and there were no complications. Transferred to the PACU post op and later to the orthopedic floor for further care. She was given antibiotic prophylaxis. She was also given MICHELINE stockings, SCDs, and aspirin for DVT prophylaxis. Hemoglobin, hematocrit, and vital signs were monitored during her hospital stay and remained stable. Did not require any blood transfusions. She did have some anemia and was given iron supplementation. There were no complications during her hospital stay. By post op day #2 the patient was tolerating a diabetic diet, pain was reasonably controlled with oral pain medicine, and she was participating in physical therapy. On post op day #2 the patient was discharged home and set up with home health care. She was given printed discharge instructions including prescriptions for extra strength tylenol, aspirin, iron supplement and oxycodone. Continue physical therapy, weight bearing as tolerated. Continue MICHELINE stockings. Follow up approximately 2 weeks post op or sooner if there are problems or concerns. Coding Level of Care Code None Diagnoses Status post total left knee replacement Z96.652
== END 2020-09-17 12:30 | disposition home health service (06) ==
LOC: 3E 10:47 → ASU 10:47